=== PATIENT | female | born 1950 | race Caucasian/White ===

== ENCOUNTER → 2018-01-06 | Outpatient (CLI) | payer MEDICARE ==
--- NOTE | 2018-01-08 11:07 | MM ---
Reason for exam: screening (asymptomatic). Last mammogram was performed 1 year and 9 months ago. History: Patient is postmenopausal. Benign excisional biopsy of the left breast, August 10, 1998. Physical Findings: A clinical breast exam by your physician is recommended on an annual basis and results should be correlated with mammographic findings. MG 3D Screening Mammo W/Cad Bilateral CC and MLO view(s) were taken. Prior study comparison: April 12, 2016, bilateral MG screening mammo w CAD. November 29, 2014, bilateral MG screening mammo w CAD. The breast tissue is heterogeneously dense. This may lower the sensitivity of mammography. There is a new 3mm group of calcifications upper outer quadrant right breast at posterior depth. Other bilateral benign appearing calcifications are seen. No suspicious abnormality in the left breast. ASSESSMENT: Incomplete: need additional imaging evaluation, BI-RAD 0 RECOMMENDATION: Special view mammogram of the right breast. [facility] will attempt to contact patient to return for supplemental views.
== END | disposition home or self-care (01) ==
LOC: RADMAMWWP 11:25
PROVIDERS: ATTEND Family Medicine
DX: Z12.31 Encounter for screening mammogram for malignant neoplasm of breast (principal)
CPT/HCPCS: 77063; 77067

== ENCOUNTER → 2018-01-21 | Outpatient (CLI) | payer MEDICARE ==
--- NOTE | 2018-01-21 13:19 | MM ---
Reason for exam: additional evaluation requested from abnormal screening. Last mammogram was performed less than 1 month ago. History: Patient is postmenopausal. Benign excisional biopsy of the left breast, August 10, 1998. Physical Findings: Nurse did not find any significant physical abnormalities on exam. MG 3D Work Up W/Cad RT CC with magnification, LM with magnification, and LM view(s) were taken of the right breast. Prior study comparison: January 06, 2018, bilateral MG 3d screening mammo w/cad. April 12, 2016, bilateral MG screening mammo w CAD. The breast tissue is heterogeneously dense. This may lower the sensitivity of mammography. Finding: There are suspicious heterogeneous, grouped calcifications in the upper outer quadrant, middle position of the right breast, 11 cm from the nipple. New finding since April 12, 2016. These results were verbally communicated with the patient and result sheet given to the patient on 01/21/18. ASSESSMENT: Suspicious, BI-RAD 4 RECOMMENDATION: Stereotactic core biopsy of the right breast. Called Dr. Walters with mammographic findings and has scheduled an appointment on 02/13/18 at 10:20 for the patient for at with Dr. Lopez. Stereo core biopsy on Saturday02/14/18 at 8:00am. PRELIMINARY REPORT CALLED AND FAXED TO DR. LOPEZ ON 01/21/18.
== END | disposition home or self-care (01) ==
LOC: RADMAMWWP 09:41
PROVIDERS: ATTEND Family Medicine
DX: R92.8 Other abnormal and inconclusive findings on diagnostic imaging of breast (principal)
CPT/HCPCS: 77065; G0279; 77061

== ENCOUNTER → 2018-01-27 | Outpatient (CLI) | payer MEDICARE ==
--- NOTE | 2018-01-27 10:17 | US ---
EXAMINATION TYPE: US carotid duplex BILAT DATE OF EXAM: 01/27/2018 COMPARISON: NONE CLINICAL HISTORY: E78.5 Hyperlipidemia. High cholesterol, no hx of stroke or TIA EXAM MEASUREMENTS: RIGHT: Peak Systolic Velocity (PSV) cm/sec ----- Right CCA: 93.0 ----- Right ICA: 70.4 ----- Right ECA: 108.3 ICA/CCA ratio: 0.8 RIGHT: End Diastole cm/sec ----- Right CCA: 24.8 ----- Right ICA: 31.1 ----- Right ECA: 15.0 LEFT: Peak Systolic Velocity (PSV) cm/sec ----- Left CCA: 95.4 ----- Left ICA: 88.8 ----- Left ECA: 104.4 ICA/CCA ratio: 0.9 LEFT: End Diastole cm/sec ----- Left CCA: 24.9 ----- Left ICA: 33.7 ----- Left ECA: 10.7 VERTEBRALS (direction of flow): Right Vertebral: Antegrade Left Vertebral: Antegrade Rhythm: Normal No elevated velocities, significant stenosis or wall thickening. Plaque seen in left bulb. IMPRESSION: 1. Atherosclerotic plaque involving the left carotid bifurcation but no diagnostic evidence of signif icant hemodynamic stenosis. Criteria for Assigning % of Stenosis / Diameter reduction (Estimation based on the indirect measurements of the internal carotid artery velocities (ICA PSV). 1. Normal (no stenosis)=ICA PSV < 125 cm/s: ratio < 2.0: ICA EDV<40 cm/s. 2. Less than 50% stenosis=ICA PSV < 125 cm/s: ratio < 2.0: ICA EDV<40 cm/s. 3. 50 to 69% stenosis=ICA PSV of 125 to 230 cm/s: ration 2.0 ? 4.0: ICA EDV 40-100 cm/s. 4. Greater than 70% stenosis to near occlusion= ICA PSV > 230 cm/s: ratio > 4.0: ICA EDV > 100 cm/s. 5. Near occlusion= ICA PSV velocities may be low or undetectable: variable ratio and ICA EDV. 6. Total occlusion=unable to detect flow.
--- NOTE | 2018-01-27 12:06 | ECHOS ---
STRESS ECHOCARDIOGRAM DATE OF SERVICE: 01/27/2018 INDICATIONS: Chest discomfort. MEDICATIONS: BASELINE HEART RATE: 71 BASELINE BLOOD PRESSURE: 124/61 MAXIMUM HEART RATE: 154 MAXIMUM BLOOD PRESSURE: 210/104 85% MPHR: 132 100% MPHR: 155 METS: 7 MAXIMUM STAGE REACHED: II TOTAL EXERCISE TIME: 5 minutes CLINICAL INFORMATION: STRESS DATA: Pretesting physical examination showed a heart rate of 71, pressure is 124/61 mmHg. Baseline EKG showed sinus mechanism. The patient exercised on the treadmill according to Jd protocol for a total of 5 minutes and achieved 7.0 METs. Max heart rate was 154, which is about 99% of maximum predicted heart rate. Maximum blood pressure was 210/104 mmHg. Clinically the patient did not have any symptoms of chest pain or discomfort but she developed shortness of breath with exertion. The EKG showed about 1.5 mm horizontal and downsloping ST-segment changes at peak of the heart rate as well as on recovery. ECHOCARDIOGRAM IMAGES: Echocardiogram images from parasternal long axis view, parasternal short axis view, apical 4 chamber view and apical 2 chamber view were obtained as the baseline images, at peak heart rate, as well as on recovery. The echocardiogram images showed an area of concern in the basal inferior wall of the left ventricle, seems to be hypokinetic at the peak of the heart rate. CONCLUSION: 1. Average exercise tolerance. 2. Shortness of breath in response to exercise. 3. Ischemic EKG changes in response to exercise with evidence of 1.[address]-segment changes at peak heart rate. 4. Abnormal wall motion abnormalities in response to exercise with evidence of basal inferior hypokinesia was seen at the apical 2 chamber view. MMODL / IJN: [id number] /
== END | disposition home or self-care (01) ==
LOC: RADUSMAIN 09:00
PROVIDERS: ATTEND Internal Medicine Cardiovascular Disease
DX: I65.22 Occlusion and stenosis of left carotid artery (principal)
CPT/HCPCS: 93351; 93880

== ENCOUNTER → 2018-02-13 | Outpatient (CLI) | payer MEDICARE ==
[2018-02-13 10:41] VITALS: BP 158/73; PULSE 86; BMI 29.0
--- NOTE | 2018-02-13 11:06 | P.GSHP ---
History of Present Illness H&P Date: 02/13/18 The patient is a 67-year-old white female who on routine mammogram performed on 01-06-18 was recommended to have additional views of the right breast. Additional views of the right breast was performed and a 01-21-18 which revealed a suspicious heterogeneous grouped calcifications in the upper outer quadrant middle position of the right breast 11 cm from the nipple. This is a new finding since March 2016. The patient states that she did fall recently twice on her right shoulder but does not think that she really injured her breast. She has no nipple discharge or skin changes noted in her breasts. She does not note any nodularity in her breast. Family History: 1. brother: skin cancer 2. mother: fibrocystic breast no cancer Hormonal history: menarche: 13 : 1, 1 child, age 29, breast fed: yes BCP: none hormones: none menopause: 52 Past surgical history: 1. breast biopsy 1998 2. bladder suspension 3. cyst removed from sciatic nerve 4. cataracts Past medical history: Negative Social history: Poking: Negative Alcohol: 2-3 drinks per week Drugs: - Constitutional Constitutional: Denies chills, Denies fever - EENT Eyes: bilateral as per HPI Ears: bilateral: decreased hearing Ears, nose, mouth and throat: Denies headache, Denies sore throat - Breasts Breasts: bilateral: as per HPI - Cardiovascular Cardiovascular: Reports high blood pressure, Denies chest pain, Denies shortness of breath - Respiratory Respiratory: Denies cough, Denies 7 - Gastrointestinal Gastrointestinal: Denies abdominal pain, Denies diarrhea, Denies nausea, Denies vomiting - Genitourinary (Female) Genitourinary: Reports as per HPI, Denies dysuria, Denies hematuria - Menstruation Menstruation: Reports postmenopausal - Musculoskeletal Comment: mild arthritis Musculoskeletal: Denies myalgias - Integumentary Integumentary: Denies pruritus, Denies rash - Neurological Neurological: Denies numbness, Denies weakness - Psychiatric Psychiatric: Denies anxiety, Denies depression - Endocrine Endocrine: Denies fatigue, Denies weight change - Hematologic/Lymphatic Comment: Baby aspirin - Allergic/Immunologic Comment: none Past Medical History Smoking Status: Never smoker Medications and Allergies Home Medications Medication Instructions Recorded Confirmed Type Aspirin 81 mg PO DAILY 01/29/18 01/29/18 History Calcium Carbonate [Calcium] 600 mg PO DAILY 01/29/18 01/29/18 History Cholecalciferol (Vitamin D3) 2,000 PO DAILY 01/29/18 History [Vitamin D3] Krill/Grant-3/Dha/Epa/Lipids 350 mg PO DAILY 01/29/18 01/29/18 History [Krill Oil 350 mg Softgel] Losartan [Cozaar] 50 mg PO DAILY 01/29/18 01/29/18 History Magnesium 400 mg PO DAILY 01/29/18 01/29/18 History Pravastatin Sodium [Pravachol] 40 mg PO DAILY 01/29/18 History Allergies Allergy/AdvReac Type Severity Reaction Status Date / Time No Known Allergies Allergy Verified 01/29/18 11:57 Surgical - Exam Vital Signs Pulse BP Pulse Ox 86 158/73 96 02/13/18 10:36 02/13/18 10:36 02/13/18 10:36 - General well developed, well nourished, no distress - Eyes PERRL, normal ocular movement - ENT no hearing loss, no congestion - Neck no masses, trachea midline - Respiratory normal respiratory effort, clear to auscultation - Cardiovascular Rhythm: regular Heart Sounds: normal: S1, S2 - Abdomen Abdomen: soft, non tender, no guarding, no rigid, no rebound - Neurologic no disoriented, no combative - Psychiatric oriented to time, oriented to person, oriented to place, speech is normal, memory intact Breast examination: Right breast: Positional exam no dominant masses or nodules of concern Right axilla: No adenopathy of concern Left breast: Positional exam no dominant masses or nodules of concern Left axilla: No adenopathy of concern Results Mammogram reports and radiographs reviewed with radiologist Assessment and Plan Assessment: Impression/plan: 1. Mammographic abnormality right breast Plan: 1. Stereotactic core biopsy mammographic abnormality right breast Risk and benefits discussed with the patient patient understands and wishes to proceed. These include but are not limited to bleeding, infection, inability to target the area, and clip migration. Alternative of following conservatively not felt to be a good choice secondary to a change on the mammogram and the heterogeneous nature of the calcifications. The procedures scheduled in the near future. Cc: Dr. Walters
== END | disposition home or self-care (01) ==
LOC: WWCWWP 10:19
PROVIDERS: ATTEND Surgery
DX: Z53.9 Procedure and treatment not carried out, unspecified reason (principal)

== ENCOUNTER → 2018-02-14 | Day surgery (SDC) | payer MEDICARE ==
[2018-02-14 07:29] VITALS: BP 146/83; PULSE 87; RESP 18; TEMP 98.7; BMI 29.0
--- NOTE | 2018-02-14 15:04 | MM ---
EXAMINATION TYPE: MG discontinued stereo core RT DATE OF EXAM: 02/14/2018 COMPARISON: 04/12/2016, 01/06/2018, and 01/21/2018 CLINICAL HISTORY: 67-year-old female referred for stereotactic core needle biopsy of right breast catherine rocalcifications TECHNIQUE: Stereotactic guided core biopsy of the right breast. FINDINGS: The procedure of stereotactic guided core biopsy was explained to the patient. Benefits, a lternatives, and risks were discussed. An informed consent was then obtained. [facility]. Shortness pathway was a lateral approach. However, the calcifications could not be identified on lateral compression and a CC approach was util ized. The patient's breasts had to be released from compression, repositioned, and recompressed a couple ti mes in order to successfully identify the calcifications. I performed the localization, then surgeon, Dr. Sagar Aaron attempted the procedure. However, set up became prolonged during attempts at identifying the calcifications and the calcifications were off ta rget after needle placement deployment due to movement. The patient elected to discontinue the procedure at this time and resume at a later date. The patient tolerated the procedure well without any immediate complication. The patient was kept in the radiology department for short stay after the procedure and then discharged home in stable condi tion. The patient will be going on vacation and returning in March at which time, she will be scheduled t o return for biopsy. IMPRESSION: 1. Technical difficulties during attempt at stereotactic core needle biopsy of right breast calcifica tions. They could not be adequately identified on lateral approach. CC from above approach was utiliz ed but the calcifications were off target after deployment of the needle due to movement. 2. Patient elected to discontinue the procedure at this time. Biopsy will be reattempted when she ret urns from vacation in March.
== END ==
LOC: RADMAMWWP 07:05
PROVIDERS: ATTEND Surgery
DX: N63.10 Unspecified lump in the right breast, unspecified quadrant (principal); N92.1 Excessive and frequent menstruation with irregular cycle; Z53.8 Procedure and treatment not carried out for other reasons
CPT/HCPCS: 19081; J2001

== ENCOUNTER → 2018-04-08 | Outpatient (CLI) | payer MEDICARE ==
--- NOTE | 2018-04-08 15:22 | XR ---
Left foot HISTORY: Left foot pain, trauma No comparisons available 3 views of the left foot Bone mineralization, joint spaces and alignment are maintained. Degenerative change present at the fi rst metatarsophalangeal joint with soft tissue swelling. Talar neck spur, anterior distal tibial spur noted compatible with osteoarthritis. Soft tissue calcifications in the left leg likely are vascular . Enthesophyte present at the insertion of the Achilles tendon. IMPRESSION: No fracture or dislocation. Osteoarthritis.
== END | disposition home or self-care (01) ==
LOC: RADXRMAIN 13:01
PROVIDERS: ATTEND Family Medicine
DX: M19.072 Primary osteoarthritis, left ankle and foot (principal)

== ENCOUNTER → 2018-05-15 | Day surgery (SDC) | payer MEDICARE ==
[2018-05-15 07:16] VITALS: RESP 16; TEMP 98.1; BMI 29.4
[2018-05-15 08:45] VITALS: BP 123/79; PULSE 66
--- NOTE | 2018-05-15 09:34 | P.PCN ---
Date of Procedure: 05/15/18 Preoperative Diagnosis: Microcalcifications of concern right breast Postoperative Diagnosis: Microcalcifications in the upper-outer quadrant middle position of the right breast 11 cm from the nipple the finding since March, Procedure(s) Performed: Right breast are tactic core biopsy Anesthesia: local Surgeon: Kaylie Lopez Estimated Blood Loss (ml): 2 Pathology: other (Breast tissue) Condition: stable Disposition: same day Indications for Procedure: Suspicious microcalcifications right breast new from 2015 Operative Findings: Microcalcifications noted in specimen radiograph Description of Procedure: The patient is a 67-year-old white female who had a mammogram performed on . She was noted to have an area of suspicious microcalcifications in the right breast in the upper outer quadrant, middle position of the right breast, 11 cm from the nipple. The patient had an attempted stereotactic core biopsy on [id number]. Secondary to technical difficulties the procedure was rescheduled. The patient understands the risks and benefits of the procedure and wishes to proceed. The patient was taken to the stereotactic core room and positioned on the stereotactic Lorad table. The area of concern was identified and a punch press setter view on a CC from above approach. A stereo pair was obtained. The lesion was targeted. The skin was prepped using Betadine. Approximately 20 mL of one percent lidocaine was used to anesthetize the area of concern. The needle was driven to the correct coordinates. Pre-fire and post-fire films were obtained. There was concern that the Y axis was too high and this was corrected by factor of approximately +3. Repeat post-fire films were obtained and the needle appeared to be in the correct location. Multiple core biopsies were obtained from the 3 to 9 o'clock position. Approximately 12 cores were obtained. The this was done using a 9-gauge vacuum assisted rotating core needle. Radiograph of the specimen revealed the area of concern had been removed. The area was marked using a secure marked top. Marker. Radiograph revealed the marker was in the correct location. The specimen was sent to pathology. The patient will follow-up Dr. Keith in 1 week. There are no immediate postoperative complications.
--- NOTE | 2018-05-15 09:38 | MM ---
EXAMINATION TYPE: MG stereo VAD BX RT DATE OF EXAM: 05/15/2018 COMPARISON: Mammogram January 21, 2018 and older studies. CLINICAL HISTORY: Prior abnormal mammogram TECHNIQUE: Stereotactic guided core biopsy of right breast with clip placement and follow-up two-view mammogram. FINDINGS: The procedure of stereotactic guided core biopsy was explained to the patient. Benefits, alternatives, and risks were discussed. An informed consent was then obtained. Cranial pathway was chosen as there were issues with prior attempted lateral approach. I performed the localization, then surgeon, Dr. Lopez performed the remainder of the procedure. A vacuum assisted biopsy gun was used to obtain multiple core samples. The patient tolerated the procedure well without any immediate complication. The patient was kept in the radiology department for short stay after the procedure and then discharged home in stable condition. Targeted calcifications are identified in specimen mammogram. Post biopsy mammogram shows the clip to appear in satisfactory position relative to the targeted area of concern on the preprocedure images. IMPRESSION: SUCCESSFUL, UNCOMPLICATED STEREOTACTIC GUIDED CORE BIOPSY OF AREA OF CONCERN IN THE RIGHT BREAST, FULL PATHOLOGY RESULTS TO FOLLOW. Pathology Results: Benign RIGHT BREAST, STEREOTACTIC CORE BIOPSY: Fibrocystic changes including fibroadenomatoid hyperplasia with calcifications, fibrosis and sclerosing adenosis. Recommendation Follow up mammogram of the right breast in 6 months. ASA
== END ==
LOC: RADMAMWWP 06:56
PROVIDERS: ATTEND Surgery
DX: N62 Hypertrophy of breast (principal); R92.1 Mammographic calcification found on diagnostic imaging of breast; N60.31 Fibrosclerosis of right breast; N60.21 Fibroadenosis of right breast
CPT/HCPCS: 88305; 19081; A4648; J2001

== ENCOUNTER → 2018-05-22 | Outpatient (CLI) | payer MEDICARE ==
[2018-05-22 10:59] VITALS: BP 160/82; PULSE 98; RESP 18; TEMP 98.6; BMI 28.7
--- NOTE | 2018-05-22 11:50 | P.PN ---
Subjective Progress Note Date: 05/22/18 Principal diagnosis: right breast sterotactic core biopsy Yessenia is a 67-year-old white female who is status post right breast stereotactic core biopsy on 05-15-18. Her pathology was benign. She has no complaints related to the procedure. Objective - Vital Signs Vital signs: Vital Signs Temp 98.6 F 05/22/18 10:41 Pulse 98 05/22/18 10:41 Resp 18 05/22/18 10:41 BP 160/82 05/22/18 10:41 Pulse Ox Intake & Output 05/21/18 05/22/18 05/22/18 18:59 06:59 18:59 Weight 73.482 kg - Constitutional General appearance: Present: average body habitus - EENT Eyes: Present: EOMI ENT: Present: hearing grossly normal - Neck Neck: Present: normal ROM - Respiratory Respiratory: bilateral: CTA - Cardiovascular Rhythm: regular Heart sounds: normal: S1, S2 - Integumentary Integumentary Comment(s): Right breast examination: Biopsy site clean and dry no evidence of infection No evidence of hematoma Integumentary: Present: normal turgor - Musculoskeletal Musculoskeletal: Present: gait normal - Psychiatric Psychiatric: Present: A&O x's 3, appropriate affect, intact judgment & insight Assessment and Plan Assessment: Impression: 1. Benign right breast are detected core biopsy 2. Fibrocystic breast changes Plan: 1. Bilateral mammogram of the breast in 6 months with physician exam at that time CC: Dr. Walters
== END ==
LOC: WWCWWP 10:25
PROVIDERS: ATTEND Surgery
DX: Z53.9 Procedure and treatment not carried out, unspecified reason (principal)

== ENCOUNTER → 2018-05-23 | Outpatient (CLI) | payer MEDICARE ==
--- NOTE | 2018-05-23 10:20 | US ---
EXAMINATION TYPE: US venous doppler duplex LE BI DATE OF EXAM: 05/23/2018 10:11 AM COMPARISON: NONE CLINICAL HISTORY: Elevated D Dimer R79.1, R60.0 edema. SIDE PERFORMED: Bilateral TECHNIQUE: The lower extremity deep venous system is examined utilizing real time linear array sonog drea with graded compression, doppler sonography and color-flow sonography. VESSELS IMAGED: External Iliac Vein (EIV) Common Femoral Vein Deep Femoral Vein Greater Saphenous Vein * Femoral Vein Popliteal Vein Small Saphenous Vein * Proximal Calf Veins (* superficial vessels) Grayscale, color doppler, spectral doppler imaging performed of the deep veins of the lower extremiti es. There is normal flow, compressibility, vascular waveforms. Right Leg: Negative for DVT Left Leg: Negative for DVT IMPRESSION: No sonographic evidence of deep venous thrombosis within either lower extremity.
== END | disposition home or self-care (01) ==
LOC: RADUSWWP 09:39
PROVIDERS: ATTEND Family Medicine
DX: R60.0 Localized edema (principal); R79.1 Abnormal coagulation profile
CPT/HCPCS: 93970

== ENCOUNTER → 2018-07-11 | Outpatient (CLI) | payer MEDICARE ==
[2018-07-11 18:47] LABS: LDL Cholesterol,Calculated 74.6 mg/dL (0.0-131.0); VLDL Calculation 30.4 mg/dL (5.00-40.00)
== END ==
LOC: LABWHC1 12:39
PROVIDERS: ATTEND Internal Medicine Cardiovascular Disease
DX: E78.00 Pure hypercholesterolemia, unspecified (principal)
CPT/HCPCS: 36415; 80061; 84450; 84460

== ENCOUNTER → 2018-08-26 | Outpatient (CLI) | payer MEDICARE ==
--- NOTE | 2018-08-26 14:43 | XR ---
Bilateral hips HISTORY: Hip pain 2 views of each hip submitted on a total of 4 images. Comparison to prior exam 03/29/2016 Bone mineralization, joint spaces and alignment are maintained. No fracture or dislocation. IMPRESSION: Stable exam, normal hips.
--- NOTE | 2018-08-26 14:45 | XR ---
Bilateral knees HISTORY: Bilateral knee pain 3 views of each knee submitted on a total of 6 images Bone mineralization, joint spaces and alignment are maintained. Minimal marginal spurring present in the medial compartment, patellofemoral joint on the right. Suprapatellar increased density suggests s mall joint effusions. IMPRESSION: Osteoarthritis
--- NOTE | 2018-08-26 14:49 | XR ---
Lumbosacral spine HISTORY: Back pain 5 views of the lumbosacral spine There is a mild levoscoliosis centered at L1-2. Laminectomies are present at L4. Anterolisthesis grad e 1 at L4-5. There is multilevel spondylosis, no evident spondylolysis. Lumbar vertebral bodies show preserved height. Bone mineralization is reduced. Sclerosis present in the posterior elements of the lumbar spine compatible with facet arthropathy. Vascular calcifications noted incidentally. Loss of d isc height present at the intervertebral levels. Partial staghorn calculus noted incidentally in the left kidney, right renal calcifications also noted IMPRESSION: Degenerative disc disease, facet arthropathy, osteopenia, spondylolisthesis and spinal cu rvature. Bilateral nephrolithiasis.
== END | disposition home or self-care (01) ==
LOC: RADXRMAIN 13:10
PROVIDERS: ATTEND Family Medicine
DX: M51.37 Other intervertebral disc degeneration, lumbosacral region (principal); M43.16 Spondylolisthesis, lumbar region; M46.97 Unspecified inflammatory spondylopathy, lumbosacral region; M85.88 Other specified disorders of bone density and structure, other site; M17.0 Bilateral primary osteoarthritis of knee; M25.551 Pain in right hip; M25.552 Pain in left hip
CPT/HCPCS: 72110; 73521

== ENCOUNTER → 2018-09-24 | Outpatient (CLI) | payer MEDICARE ==
--- NOTE | 2018-09-24 15:38 | BD ---
EXAMINATION TYPE: Axial Bone Density DATE OF EXAM: 09/24/2018 COMPARISON: NONE CLINICAL HISTORY: Postmenopausal female. Osteoporosis screening. Height: 64 Weight: 167.7 FRAX RISK QUESTIONS: Alcohol (3 or more units per day): no Family History (Parent hip fracture): no Glucocorticoids (More than 3mos): no (Ex: prednisone, prednisolone, methylprednisolone, dexamethasone, and hydrocortisone). History of Fracture in Adulthood: no Secondary Osteoporosis: 1. Type 1 Diabetes: no 2. Hyperthyroidism: no 3. Menopause before 45: no 4. Malnutrition: no 5. Chronic liver disease: no Rheumatoid Arthritis: no Current Tobacco Use: no RISK FACTORS HISTORY OF: Surgery to Spine/Hip(right/left)/Wrist (right/left): When: Family History of Osteoporosis: yes Active: yes Diet low in dairy products/other sources of calcium: Postmenopausal woman: yes age 52 MEDICATIONS: losartan, rosuvastatin, aspirin Additional History: EXAM MEASUREMENTS: Bone mineral densitometry was performed using the [employer] System. Bone mineral density as measured about the Lumbar spine is: ----- L1-L4(G/cm2): 1.084 T Score Values are as follows: ----- L2: -0.3 ----- L3: -0.2 ----- L4: -1.9 ----- L1-L4: -0.8 Bone mineral density : baseline Bone mineral density about the R hip (g/cm2): 1.014 Bone mineral density about the L hip (g/cm2): 0.989 T Score values are as follows: -----R Neck: -0.2 -----L Neck: -0.3 -----R Total: 0.7 -----L Total: 0.0 Bone mineral density : baseline IMPRESSION: Normal (Values between +1 and -1 indicate normal bone mass). Consider repeating this study in 5 year s or sooner if there is some new clinical indication. NOTE: T-SCORE=SD OF THE YOUNG ADULT MEAN.
== END | disposition home or self-care (01) ==
LOC: RADBDWWP 08:31
PROVIDERS: ATTEND Family Medicine
DX: M81.0 Age-related osteoporosis without current pathological fracture (principal)
CPT/HCPCS: 77080

== ENCOUNTER → 2019-01-16 | Outpatient (CLI) | payer MEDICARE ==
--- NOTE | 2019-01-16 11:04 | MM ---
Reason for exam: additional evaluation requested from prior study. Last mammogram was performed 1 year ago. History: Patient is postmenopausal. Benign MG stereo VAD BX RT of the right breast, May 15, 2018. MG discontinued stereo core RT of the right breast, February 14, 2018. Benign excisional biopsy of the left breast, August 10, 1998. Physical Findings: Nurse did not find any significant physical abnormalities on exam. MG 3D Diag Mammo W/Cad KOMAL Bilateral CC and MLO view(s) were taken. Prior study comparison: January 21, 2018, right breast MG 3d work up w/cad RT. January 06, 2018, bilateral MG 3d screening mammo w/cad. The breast tissue is heterogeneously dense. This may lower the sensitivity of mammography. Benign appearing bilateral calcifications. No suspicious abnormality. Right biopsy marker. No significant new findings when compared with previous films. These results were verbally communicated with the patient and result sheet given to the patient on 01/16/19. ASSESSMENT: Benign, BI-RAD 2 RECOMMENDATION: Routine screening mammogram of both breasts in 1 year.
== END | disposition home or self-care (01) ==
LOC: RADMAMWWP 09:36
PROVIDERS: ATTEND Surgery
DX: R92.8 Other abnormal and inconclusive findings on diagnostic imaging of breast (principal)
CPT/HCPCS: 77066; G0279; 77062

== ENCOUNTER → 2019-02-12 | Outpatient (CLI) | payer MEDICARE ==
--- NOTE | 2019-02-12 13:48 | MR ---
EXAMINATION TYPE: MR lumbar spine wo/w con DATE OF EXAM: 02/12/2019 COMPARISON: X-rays of the lumbar spine dated 08/26/2018 HISTORY: Radiculopathy, lumbar region , pain in left hip area TECHNIQUE: Multiplanar, multisequence images of the lumbar spine were acquired utilizing [address] gadolinium contrast. FINDINGS: There is grade 1 anterolisthesis of L4 and L5 with disc uncovering. Remainder the vertebral bodies of the lumbar spine maintain normal vertebral body heights and alignment. Conus medullaris is unremarkable terminating at L1. Postsurgical changes seen of the lower lumbar spine with surgical ab sence of the L4 and L5 posterior elements. There is a synovial cyst protruding posteriorly from the r ight L4-L5 facet joint measuring 8 mm. No mass effect upon the nerve roots as this is posterior to th e joint space. There are probable bilateral renal sinus cysts although incompletely evaluated with MRI given the fie ld-of-view. Right extrarenal pelvises also suspected. Bone marrow is within normal limits. L1-L2: There is disc desiccation without focal herniation. Facet arthropathy and mild ligamentum flav um buckling is seen without spinal canal stenosis nor neural foraminal narrowing. L2-L3: There is a broad-based disc bulge and facet arthropathy with ligamentum flavum buckling creati ng mild spinal canal stenosis and moderate bilateral neural foraminal narrowing. L3-L4: There is a broad-based disc bulge and facet arthropathy resulting in moderate bilateral neural foraminal narrowing, left greater than right. Left neural foraminal narrowing is moderate to severe. Mild spinal canal stenosis. L4-L5: Disc uncovering is seen with a broad-based disc bulge and facet arthropathy resulting in sever e left and moderate to severe right neural foraminal narrowing. No spinal canal stenosis. L5-S1: There is a left paracentral disc herniation and broad-based disc bulge with facet arthropathy. Mild bilateral neural foraminal narrowing without spinal canal stenosis. There is a small amount of epidural fibrosis seen right laterally surrounding the thecal sac at the s uperior endplate of L5 abutting the right L5 nerve root. This is marked on postcontrast axial T1-weig hted image 9. IMPRESSION: 1. Small amount of epidural fibrosis is seen at the right lateral aspect of the thecal sac at L5-S1 a butting the L5 nerve root. 2. Left paracentral disc herniation at L5-S1 superimposed on a broad-based disc bulge contributing to mild bilateral neural foraminal narrowing. No spinal canal stenosis as there is postsurgical change with removal of the posterior elements. 3. Grade 1 anterolisthesis of L4 and L5 with disc uncovering resulting in moderate to severe right ne ural foraminal narrowing and severe left neural foraminal narrowing. 4. Mild spinal canal stenosis at L2-L3 and L3-L4. 5. Moderate degenerative disc disease of the lumbar spine results in variable degrees of neural dean inal narrowing as detailed above.
== END | disposition home or self-care (01) ==
LOC: RADMRIMAIN 12:19
PROVIDERS: ATTEND Family Medicine
DX: M48.061 Spinal stenosis, lumbar region without neurogenic claudication (principal); M48.07 Spinal stenosis, lumbosacral region; M43.16 Spondylolisthesis, lumbar region; M51.27 Other intervertebral disc displacement, lumbosacral region; M51.36 Other intervertebral disc degeneration, lumbar region
CPT/HCPCS: 72158; A9585

== ENCOUNTER → 2019-11-04 | Outpatient (CLI) | payer MEDICARE ==
[2019-11-04 12:56] LABS: Basophils % (A) 1 %; Eosinophils # (A) 0.3 k/uL (0-0.7); Eosinophils % (A) 5 %; HCT 39.6 % (34.0-46.0); HGB 12.8 gm/dL (11.4-16.0); Lymphocytes # (A) 1.4 k/uL (1.0-4.8); Lymphocytes % (A) 27 %; MCH 33.4 pg (25.0-35.0); MCHC 32.3 g/dL (31.0-37.0); MCV 103.2 fL (80.0-100.0); Macrocytosis Slight; Monocytes # (A) 0.3 k/uL (0-1.0); Monocytes % (A) 5 %; Neutrophils % (A) 60 %; Platelet Count 258 k/uL (150-450); RBC 3.83 m/uL (3.80-5.40); WBC 5.1 k/uL (3.8-10.6)
[2019-11-04 13:35] LABS: Appearance,Urine Cloudy (Clear); Bacteria,Urine Many /hpf; Bilirubin,Urine Negative (Negative); Blood,Urine Negative (Negative); Color,Urine Light Yellow; Glucose,Urine (UA) Negative (Negative); Ketones,Urine Negative (Negative); Leukocyte Esterase,Urine Large (Negative); Nitrite,Urine Positive (Negative); PH, Urine 7.5 (5.0-8.0); Protein,Urine Negative (Negative); RBC,Urine 3 /hpf (0-5); Specific Gravity,Urine 1.007 (1.001-1.035); Squamous Epithelial Cell,Urine 1 /hpf (0-4); Urobilinogen,Urine <2.0 mg/dL (<2.0); WBC,Urine 80 /hpf (0-5)
[2019-11-04 18:39] LABS: African American GFR (CKD) 88.4 (60.0-200.0); Albumin 4.3 g/dL (3.80-4.90); Albumin/Globulin Ratio 2.05 (1.60-3.17); BUN/Creat Ratio 18.75 Ratio (12.00-20.00); Calcium 9.7 mg/dL (8.7-10.3); Globulin 2.1 g/dL (1.6-3.3); Non-African American GFR(CKD) 76.3 (60.0-200.0); Potassium 4.3 mmol/L (3.5-5.5); Total Bilirubin 0.4 mg/dL (0.2-1.2); Total Protein 6.4 g/dL (6.2-8.2)
== END | disposition home or self-care (01) ==
LOC: LABWHC1 11:22
PROVIDERS: ATTEND Urology
DX: Z01.818 Encounter for other preprocedural examination (principal); N20.0 Calculus of kidney; R31.29 Other microscopic hematuria
CPT/HCPCS: 36415; 80053; 81001; 85025; 87086

== ENCOUNTER → 2019-11-06 | Outpatient (CLI) | payer MEDICARE | END | disposition home or self-care (01) | LOC: LABWHC1 11:59 | PROVIDERS: ATTEND Urology | DX: Z11.59 Encounter for screening for other viral diseases (principal) | CPT/HCPCS: 87635 ==

== ENCOUNTER 2019-11-11 06:09 | Observation (INO) | payer MEDICARE ==
[2019-11-06 16:13] VITALS: BMI 28.0
--- NOTE | 2019-11-10 19:57 | P.GSHP ---
History of Present Illness H&P Date: 11/10/19 [address] Tran who recently had a right ureteroscopy with remova of stones. She was referred to me for a left pcnl for a partial staghorn calculous. I recently examined, and reviewed the xray with the patient Due to the size[3cm] and location of the stone she comes for a left pcnl. The risks[infection, pain bleeding, injury to adjacent organs, injury and loss of the kidneys, failure to remove all the stone among others have been explained understood and accepted - Constitutional Constitutional: Denies chills, Denies fever - EENT Eyes: denies blurred vision, denies pain Ears, nose, mouth and throat: Denies headache, Denies sore throat - Cardiovascular Cardiovascular: Denies chest pain, Denies shortness of breath - Respiratory Respiratory: Denies cough, Denies 7 - Gastrointestinal Gastrointestinal: Denies abdominal pain, Denies diarrhea, Denies nausea, Denies vomiting - Genitourinary (Female) Genitourinary: Denies dysuria, Denies hematuria - Genitourinary (Male) Genitourinary: Denies dysuria, Denies hematuria - Musculoskeletal Musculoskeletal: Denies myalgias - Integumentary Integumentary: Denies pruritus, Denies rash - Neurological Neurological: Denies numbness, Denies weakness - Psychiatric Psychiatric: Denies anxiety, Denies depression - Endocrine Endocrine: Denies fatigue, Denies weight change Past Medical History Past Medical History: Eye Disorder, Hearing Disorder / Deafness, Hyperlipidemia, Hypertension, Osteoarthritis (OA) Additional Past Medical History / Comment(s): Hx Stress test showed 10% blockage 2019. Early macular degeneration. Kidney stones. OA hips, knees. History of Any Multi-Drug Resistant Organisms: None Reported Past Surgical History: Back Surgery, Bladder Surgery, Breast Surgery Additional Past Surgical History / Comment(s): Lumbar Laminectomy 2006, exc cyst sciatic nerve. [place] Breast bx, 2002 bladder suspension. Cataracts [place]. 10/21/19 Rt kidney stone, has stent. Past Anesthesia/Blood Transfusion Reactions: Postoperative Nausea & Vomiting (PONV) Smoking Status: Never smoker - Past Family History Father Family Medical History: Myocardial Infarction ([place]) Mother Family Medical History: Congestive Heart Failure (CHF) Medications and Allergies Home Medications Medication Instructions Recorded Confirmed Type Aspirin 81 mg PO HS 01/29/18 11/06/19 History Calcium Carbonate [Calcium] 600 mg PO DAILY 01/29/18 11/06/19 History Cholecalciferol (Vitamin D3) 2,000 cap PO DAILY 01/29/18 11/06/19 History [Vitamin D3] Krill/[place]-3/Dha/Epa/Lipids 350 mg PO DAILY 01/29/18 11/06/19 History [Krill Oil 350 mg Softgel] Losartan [Cozaar] 50 mg PO HS 01/29/18 11/06/19 History Rosuvastatin [Crestor] 40 mg PO HS 04/28/18 11/06/19 History Acetaminophen Tab [Tylenol] 325 - 650 mg PO DIRECTED PRN 11/06/19 11/06/19 History Vit C/E/Zn/Coppr/Lutein/Zeaxan 1 each PO DAILY 11/06/19 11/06/19 History [Preservision Areds 2 Softgel] Allergies Allergy/AdvReac Type Severity Reaction Status Date / Time No Known Allergies Allergy Verified 11/06/19 15:48 Surgical - Exam - General well developed, well nourished, no distress - Eyes PERRL - ENT no hearing loss - Neck no masses - Respiratory normal expansion, normal respiratory effort - Cardiovascular Rhythm: regular - Abdomen Abdomen: soft, non tender - Integumentary no rash - Neurologic normal coordination, normal sensation - Musculoskeletal normal gait, normal posture - Psychiatric oriented to time, oriented to person, oriented to place, speech is normal, radha ry intact Results - Imaging CT scan - abdomen: report reviewed, image reviewed CT scan - pelvis: report reviewed, image reviewed Assessment and Plan Assessment: Impression: Partial staghorn calculous left Plan: Left PCNL
[~2019-11-11 06:09] MED LIST: AMPICILLIN 1,000 MG in SODIUM CHLORIDE 0.9% 50 ML IVPB ONE; GENTAMICIN IN NACL ISO-OSM PMX 80 MG in SALINE 1 100ML.BAG IVPB ONE; LIDOCAINE 1% (10MG/ML) FOR IV START INTRADERMA PRN; ONDANSETRON 4 MG/2 ML VIAL IVP ONE; fentaNYL (PF) 50 MCG/ML 2 ML AMP IV PRN
--- NOTE | 2019-11-11 06:30 | XR ---
EXAMINATION TYPE: XR abdomen 1V DATE OF EXAM: 11/11/2019 6:21 AM CLINICAL HISTORY: Left-sided kidney stone. TECHNIQUE: Single supine KUB image of the abdomen is obtained. COMPARISON: Lumbar spine x-ray August 26, 2018 FINDINGS: Large lobulated left-sided staghorn type calculus occupying mid to lower pole central regio n likely pelvis of left kidney redemonstrated measuring approximately 3.9 cm long axis. Additional sm aller calculi towards the periphery mid to lower pole level are seen. Larger upper pole calculus on p rior x-rays not identified. Poor visualization of right renal calculi and current study with new righ t double-J ureter stent. Overall nonobstructive bowel gas pattern. Visualized osseous structures are intact. IMPRESSION: As above.
[2019-11-11] MEDS: LACTATED RINGERS 1,000 ML IV SCH ×2 (06:53→15:08)
[2019-11-11] MEDS ORDERED: LIDOCAINE 1% INJ 10MG/ML (20 ML MDV) ONE (07:20)
[2019-11-11] MEDS ORDERED: PHENYLEPHRINE-0.9% NACL SYG 1 MG/10 ML SYRINGE ONE (07:20)
[2019-11-11] MEDS ORDERED: ROCURONIUM BROMIDE 10 MG/ML 5 ML VIAL IV ONE (07:20)
[2019-11-11] MEDS ORDERED: fentaNYL (PF) 50 MCG/ML 2 ML AMP ONE (07:20)
[2019-11-11] MEDS ORDERED: SUCCINYLCHOLINE CHLORIDE 100 MG/5 ML SYR IV ONE (07:20)
[2019-11-11] MEDS ORDERED: NEOSTIGMINE 1 MG/ML 10 ML VIAL ONE (07:20)
[2019-11-11] MEDS ORDERED: GLYCOPYRROLATE 0.2 MG/ML 2 ML VIAL ONE (07:20)
[2019-11-11] MEDS ORDERED: MIDAZOLAM 2 MG/2 ML VIAL ONE (07:20)
[2019-11-11] MEDS ORDERED: PROPOFOL 10 MG/ML 20 ML VIAL IV ONE (07:20)
[2019-11-11] MEDS ORDERED: IOPAMIDOL-370 50ML BTL MISCELLANE ONE (07:25)
[2019-11-11] MEDS ORDERED: LACTATED RINGERS 1,000 ML IV ONE (09:40)
[2019-11-11] MEDS ORDERED: ACETAMINOPHEN TAB 325 MG TAB PO PRN (10:06)
[2019-11-11] MEDS ORDERED: MAG HYDROX/AL HYDROX/SIMETH 30 ML CUP PO PRN (10:06)
[2019-11-11] MEDS ORDERED: ONDANSETRON 4 MG/2 ML VIAL IVP PRN (10:06)
[2019-11-11] MEDS: HYDROmorphone 0.5 MG/0.5 ML SYRINGE IVP PRN ×4 (10:07→10:45)
[2019-11-11] MEDS ORDERED: NALOXONE 0.4 MG/ML 1 ML VIAL IV PRN (10:07)
--- NOTE | 2019-11-11 10:15 | P.OP ---
Date of Procedure: 11/11/19 Preoperative Diagnosis: Partial staghorn calculus left, large (greater than 3 cm) Postoperative Diagnosis: Same Procedure(s) Performed: Cystoscopy, removal double-J catheter right, placement of occluding balloon catheter left, percutaneous nephrostomy (Dr. hsieh) percutaneous nephrostolithotomy large (3 cm) ultrasound technique, placement of 20-Chilean reentry nephrostomy tube. Anesthesia: GETA Surgeon: Brannon Lundberg Estimated Blood Loss (ml): 200 Pathology: other (Stone) Condition: stable Disposition: PACU Indications for Procedure: The patient is 69. She has active stone disease. recently did right ureteroscopy with laser lithotripsy. She has a partial staghorn greater than 3 cm in the left kidney. She comes for percutaneous nephrostolithotomy by myself. Description of Procedure: The patient is brought to the operating suite. She is given a general endotracheal anesthesia. She's placed in a frog position with a sterile prep and drape. Cystoscopy Foroblique lens 22-Chilean sheath is performed. The double-J cath on the right is identified grasp and removed. I reintroduced the scope into the bladder. Through the scope I then pass a 5-Ch[place]an occluding balloon catheter up into the UPJ. It is secured to a 16-Chilean Watts. The patient's placed in a prone position. Sterile prep and drape was administered. Dr. Hsieh of radiology performed percutaneous access eventually to an upper pole calyx between the 12th and 11th rib. We attempted both middle and lower pole access the stone was too impacted. We eventually were able to dilate the tract to 30-Chilean. I introduced a 30-Chilean working sheath into the collecting system. Identify stone from the renal pelvis extending in an upper pole calyx. With ultrasound I tediously grind break suction and remove the stone. I passed into the renal pelvis. I then advanced the rigid scope down in the lower pole calyx where the stone continues into. All the stone that I can with ultrasound and direct vision. I then pass the flexible nephroscope into the collecting system. I passed this in the lower pole and basketed several small stones. At the end of the procedure I looked throughout the collecting system and see no obvious remaining stone although there is a fair amount of edema. I place a 20- [place]an reentry nephrostomy tube so that I can do a computed tomography scan postoperatively to make sure that all the stone is removed and a second look nephroscopy will not be indicated. The patient tolerated procedure well. She was awake and returned recovery in good condition. Blood loss is less than 200 mL.
--- NOTE | 2019-11-11 10:33 | FL ---
EXAMINATION TYPE: FL Perc Nephrostomy New Access DATE OF EXAM: 11/11/2019 COMPARISON: NONE HISTORY: Left renal stone Procedure had been discussed with the patient by Dr. Lundberg, risks, benefits, alternatives, were dis cussed and any questions were answered. Informed consent was obtained. The patient was in a semipro ne position prepped and draped on the OR table in the usual sterile fashion. Utilizing a 15 cm lengt h Chiba needle a single pass was made into a lower pole posterior calyx under fluoroscopic guidance. An 0.018 guidewire is passed through the needle and there was placement of a 6-Latvian catheter sheat h system. There was conversion to a 0.035 system was performed with passage of a guidewire into the ureter utilizing a directional catheter. A second safety wire was placed. Remaining portion of pro cedure performed by . Approximately 18.3 minutes of fluoroscopy was provided. IMPRESSION: 1. Successful intraoperative left nephrostomy prior to nephrolithotomy.
[2019-11-11 11:35] VITALS: RESP 16
[2019-11-11] MEDS ORDERED: HYDROmorphone PCA 10 MG/50 ML BAG IV PRN (12:00)
[2019-11-11] MEDS: DEXTROSE 5%-0.45% NACL 1,000 ML IV SCH ×2 (13:54→22:51)
--- NOTE | 2019-11-11 16:16 | CT ---
EXAMINATION TYPE: CT abdomen wo con DATE OF EXAM: 11/11/2019 COMPARISON: None HISTORY: kidney stone left post pcnl CT DLP: 485 mGycm Examination of the solid and hollow viscera is limited given the lack of contrast. Unenhanced CT of t he abdomen was performed. The lack of contrast limits evaluation. FINDINGS: LUNG BASES: Left basilar atelectasis and small effusion. LIVER/GB: The gallbladder is unremarkable. No space-occupying hepatic lesion. PANCREAS: No pancreatic mass identified. No inflammatory process seen. SPLEEN: No evidence for splenomegaly. No intrasplenic lesions seen. ADRENALS: No adrenal nodules identified. No evidence for thickening. KIDNEYS: There is been interval percutaneous urostomy with left perinephric air identified and a smal l amount of fluid seen. Left ureteral stent is identified. At the proximal component of the stent jus t distal to the left UPJ there is an approximately 3.5 mm calculus noted. Multiple left renal calculi are noted measuring 6.5 mm lower pole left kidney there are multiple right-sided renal calculi noted with the largest calculus measuring 4 mm the lower pole left kidney. 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 IMPRESSION: 1. Interval left-sided percutaneous nephrostomy with a nephrostomy tube in place. Perinephric air and small amount of fluid noted postprocedural in nature. Left ureteral stent with 3.5 mm calculus adjac ent to the proximal component of the left-sided stent just distal to the UPJ. 2. Multiple Additional left renal calculi with the largest calculus lower pole left kidney measuring 6.5 mm. Multiple nonobstructing right-sided nephrolithiasis.
[2019-11-11] MEDS: CIPROFLOXACIN HCL 500 MG TAB PO SCH (22:49)
[2019-11-12] MEDS: LOSARTAN 50 MG TAB PO SCH ×2 (02:10→20:37)
--- NOTE | 2019-11-12 07:05 | P.PN ---
Subjective Progress Note Date: 11/12/19 The patient's and her first postoperative day from a left percutaneous nephrostolithotomy of a partial staghorn calculus. The anatomy was technically challenging. I remove the majority of the stone but new that due to the nature of the stone, the intra-renal anatomy that there could be some stone fragments left. I ordered a computed tomography scan postoperatively and indeed there are some stones left. I do think that they will need to be removed. I left a larger tube in case I needed to do a secondary nephroscopy with nephrostolithotomy. This was discussed with the patient this morning and I will make arrangements for this to be done next week. I'll remove her Watts and IV. We'll see how she does with her pain today. She'll be discharged home probably sometime within the next 24 hours. He will go home with a nephrostomy tube. She has [place] at home. Diet will be regular activities Limited. Postoperative instructions have been given. She'll side how she feels as to determine whether she'll be discharged home later today or in the morning. Objective - Vital Signs Vital signs: Vital Signs Temp 99 F 11/12/19 05:34 Pulse 94 11/12/19 05:34 Resp 16 11/12/19 05:34 BP 98/60 11/12/19 05:34 Pulse Ox 97 11/12/19 05:34 Intake & Output 11/11/19 11/12/19 11/12/19 18:59 06:59 18:59 Intake Total 1950 1000 Output Total 1350 1605 Balance 600 -605 Weight 72 kg Intake: IV 1850 1000 Dextrose 5%-0.45% NaCl 1, 1000 000 ml @ 100 mls/hr IV . Q10H NIC Rx#:[id number] Intake, IV Titration 100 Amount Dextrose 5%-0.45% NaCl 1, 100 000 ml @ 100 mls/hr IV . Q10H NIC Rx#:[id number] Output: Drainage 605 Left Posterior Back 605 Urine 1150 1000 Estimated Blood Loss 200 Other: Voiding Method Indwelling Catheter
[2019-11-12] MEDS: HYDROcodone/APAP 5-325MG 1 EACH TAB PO PRN ×3 (08:49→20:37)
[2019-11-12] MEDS: CIPROFLOXACIN HCL 500 MG TAB PO SCH ×2 (08:51→20:36)
[2019-11-12] MEDS: DEXTROSE 5%-0.45% NACL 1,000 ML IV SCH (08:57)
[2019-11-12] MEDS: LACTATED RINGERS 1,000 ML IV SCH (10:54)
[2019-11-13 04:47] VITALS: BP 92/57; PULSE 97; TEMP 99.1
[2019-11-13] MEDS: HYDROcodone/APAP 5-325MG 1 EACH TAB PO PRN ×2 (05:52→10:18)
--- NOTE | 2019-11-13 07:20 | P.DS ---
Providers Date of admission: 11/12/19 11:39 Attending physician: Brannon Lundberg Primary care physician: [facility] Course: The patient was admitted 11/11/2019 for a left percutaneous nephrostolithotomy. This is difficult due to delicate intrarenal anatomy and impacted partial staghorn calculus. The bulk of the stone was removed but there still remained fragments based on the follow-up computed tomography scan. She is feeling much better today. Her vital signs are stable. She is afebrile. Her urine is clearing. She's been scheduled for a secondary nephroscopy next week. She'll go home with a nephrostomy tube. She has pain medicine at home. She'll have [place] testing Saturday. Postoperative instructions of been given. Her condition is good. The patient understands and consents to this discharge. Patient Condition at Discharge: Good Plan - Discharge Summary Discharge Rx Participant: No New Discharge Prescriptions: No Action Losartan [Cozaar] 50 mg PO HS Aspirin 81 mg PO HS Calcium Carbonate [Calcium] 600 mg PO DAILY Krill/[place]-3/Dha/Epa/Lipids [Krill Oil 350 mg Softgel] 350 mg PO DAILY Cholecalciferol (Vitamin D3) [Vitamin D3] 2,000 cap PO DAILY Rosuvastatin [Crestor] 40 mg PO HS Acetaminophen Tab [Tylenol] 325 - 650 mg PO DIRECTED PRN PRN Reason: Pain Vit C/E/Zn/Coppr/Lutein/Zeaxan [Preservision Areds 2 Softgel] 1 each PO DAILY Ciprofloxacin HCl [Cipro] 500 mg PO BID Discharge Medication List Aspirin 81 mg PO HS 01/29/18 [History] Calcium Carbonate [Calcium] 600 mg PO DAILY 01/29/18 [History] Cholecalciferol (Vitamin D3) [Vitamin D3] 2,000 cap PO DAILY 01/29/18 [History] Krill/[place]-3/Dha/Epa/Lipids [Krill Oil 350 mg Softgel] 350 mg PO DAILY 01/29/18 [History] Losartan [Cozaar] 50 mg PO HS 01/29/18 [History] Rosuvastatin [Crestor] 40 mg PO HS 04/28/18 [History] Acetaminophen Tab [Tylenol] 325 - 650 mg PO DIRECTED PRN 11/06/19 [History] Vit C/E/Zn/Coppr/Lutein/Zeaxan [Preservision Areds 2 Softgel] 1 each PO DAILY 11/06/19 [History] Ciprofloxacin HCl [Cipro] 500 mg PO BID 11/11/19 [History] Follow up Appointment(s)/Referral(s): Brannon Lundberg MD [STAFF PHYSICIAN] - 1 Week Patient Instructions/Handouts: Nephrostomy Tube Insertion (DC), Nephrostomy Tube Care (ED) Activity/Diet/Wound Care/Special Instructions: home with nephrostomy tube
[2019-11-13] MEDS: CIPROFLOXACIN HCL 500 MG TAB PO SCH (10:21)
== END 2019-11-13 11:44 | disposition home or self-care (01) ==
LOC: OR 06:09 → 5NMEDONC 09:51 → OR 11-12 11:39
PROVIDERS: ADMIT Urology; ATTEND Urology
DX: N20.0 Calculus of kidney (principal); H35.30 Unspecified macular degeneration; H91.90 Unspecified hearing loss, unspecified ear; E78.5 Hyperlipidemia, unspecified; I10 Essential (primary) hypertension; M16.0 Bilateral primary osteoarthritis of hip; I70.90 Unspecified atherosclerosis; M17.0 Bilateral primary osteoarthritis of knee; Z98.890 Other specified postprocedural states; Z86.69 Personal history of other diseases of the nervous system and sense organs; Z98.42 Cataract extraction status, left eye; Z98.41 Cataract extraction status, right eye; Z96.0 Presence of urogenital implants; Z91.89 Other specified personal risk factors, not elsewhere classified; Z79.82 Long term (current) use of aspirin; Z79.899 Other long term (current) drug therapy; Z79.2 Long term (current) use of antibiotics; Z82.49 Family history of ischemic heart disease and other diseases of the circulatory system
CPT/HCPCS: 86900; 86901; 86850; 82365; 50432; 74018; 74150; 50081; G0378 ×3; C1769 ×5; C2628; C1894; J1580; J2250; J2710; J2405; J2001; J3010; J0290; J2370; J0330; J2704; J1170 ×2; Q9967

== ENCOUNTER → 2019-11-16 | Outpatient (CLI) | payer MEDICARE | END | disposition home or self-care (01) | LOC: LABWHC1 14:40 | PROVIDERS: ATTEND Urology | DX: Z01.818 Encounter for other preprocedural examination (principal); Z11.59 Encounter for screening for other viral diseases; N20.0 Calculus of kidney ==

== ENCOUNTER 2019-11-18 09:30 | Day surgery (SDC) | payer MEDICARE ==
--- NOTE | 2019-11-17 12:21 | P.GSHP ---
History of Present Illness H&P Date: 11/17/19 69 yo female who underwent a left pcnl last week to a large partial staghorn calculous. The intrarenal anatomy was complicated and delicate Ther were retained stones She comes for a secondary pcnl to remove the remaining stones - Constitutional Constitutional: Denies chills, Denies fever - EENT Eyes: denies blurred vision, denies pain Ears, nose, mouth and throat: Denies headache, Denies sore throat - Cardiovascular Cardiovascular: Denies chest pain, Denies shortness of breath - Respiratory Respiratory: Denies cough, Denies 7 - Gastrointestinal Gastrointestinal: Denies abdominal pain, Denies diarrhea, Denies nausea, Denies vomiting - Genitourinary (Female) Genitourinary: Denies dysuria, Denies hematuria - Genitourinary (Male) Genitourinary: Denies dysuria, Denies hematuria - Musculoskeletal Musculoskeletal: Denies myalgias - Integumentary Integumentary: Denies pruritus, Denies rash - Neurological Neurological: Denies numbness, Denies weakness - Psychiatric Psychiatric: Denies anxiety, Denies depression - Endocrine Endocrine: Denies fatigue, Denies weight change Past Medical History Past Medical History: Hyperlipidemia, Hypertension History of Any Multi-Drug Resistant Organisms: None Reported Past Surgical History: Back Surgery, Bladder Surgery, Breast Surgery Additional Past Surgical History / Comment(s): breast bx, 2002 bladder suspension, 2007 cyst removed c nerve Past Anesthesia/Blood Transfusion Reactions: Postoperative Nausea & Vomiting (PONV) Past Alcohol Use History: None Reported - Past Family History Mother Family Medical History: Hyperlipidemia, Hypertension Additional Family Medical History / Comment(s): cysts removed from breasts around age 40 Father Family Medical History: Congestive Heart Failure (CHF), Hypertension Medications and Allergies Home Medications Medication Instructions Recorded Confirmed Type Aspirin 81 mg PO HS 01/29/18 11/06/19 History Calcium Carbonate [Calcium] 600 mg PO DAILY 01/29/18 11/11/19 History Cholecalciferol (Vitamin D3) 2,000 cap PO DAILY 01/29/18 11/06/19 History [Vitamin D3] Krill/[place]-3/Dha/Epa/Lipids 350 mg PO DAILY 01/29/18 11/06/19 History [Krill Oil 350 mg Softgel] Losartan [Cozaar] 50 mg PO HS 01/29/18 11/06/19 History Rosuvastatin [Crestor] 40 mg PO HS 04/28/18 11/06/19 History Acetaminophen Tab [Tylenol] 325 - 650 mg PO DIRECTED PRN 11/06/19 11/06/19 History Vit C/E/Zn/Coppr/Lutein/Zeaxan 1 each PO DAILY 11/06/19 11/06/19 History [Preservision Areds 2 Softgel] Ciprofloxacin HCl [Cipro] 500 mg PO BID 11/11/19 11/11/19 History HYDROcodone/APAP 5-325MG [[place] 1 each PO Q4HR PRN tab 11/13/19 Rx 5-325] Allergies Allergy/AdvReac Type Severity Reaction Status Date / Time No Known Allergies Allergy Verified 11/11/19 06:42 Surgical - Exam - General well developed, well nourished, no distress - Eyes PERRL - ENT no hearing loss - Neck trachea midline - Respiratory normal expansion, normal respiratory effort - Cardiovascular Rhythm: regular - Abdomen left nephrostomy tube Abdomen: soft, non tender - Integumentary no rash, no growths - Neurologic normal coordination, normal sensation - Musculoskeletal normal gait, normal posture - Psychiatric oriented to time, oriented to person, oriented to place, speech is normal, memory intact Results - Imaging CT scan - abdomen: report reviewed, image reviewed CT scan - pelvis: report reviewed, image reviewed Assessment and Plan Assessment: Impression: left renal stones Plan: secondary pcnl left
[2019-11-17 12:40] VITALS: BMI 28.0
[~2019-11-18 09:30] MED LIST changes: +DEXAMETHASONE SOD PHOSPHATE 10 MG/ML 1 ML VIAL IV ONE; +GENTAMICIN 90 MG in SODIUM CHLORIDE 0.9% 100 ML IVPB ONE; -GENTAMICIN IN NACL ISO-OSM PMX 80 MG in SALINE 1 100ML.BAG IVPB ONE; +HYDROmorphone 0.5 MG/0.5 ML SYRINGE IVP PRN; -LIDOCAINE 1% (10MG/ML) FOR IV START INTRADERMA PRN; -fentaNYL (PF) 50 MCG/ML 2 ML AMP IV PRN
[2019-11-18] MEDS: LIDOCAINE 1% (10MG/ML) FOR IV START INTRADERMA PRN ×2 (10:18→10:38)
[2019-11-18] MEDS: LACTATED RINGERS 1,000 ML IV SCH ×2 (10:39→11:10)
[2019-11-18 10:40] LABS: Basophils # (A) 0.1 k/uL (0-0.2); Basophils % (A) 1 %; Eosinophils # (A) 0.3 k/uL (0-0.7); Eosinophils % (A) 5 %; HCT 37.1 % (34.0-46.0); HGB 11.8 gm/dL (11.4-16.0); Lymphocytes # (A) 1.6 k/uL (1.0-4.8); Lymphocytes % (A) 22 %; MCH 32.3 pg (25.0-35.0); MCHC 31.8 g/dL (31.0-37.0); MCV 101.7 fL (80.0-100.0); Macrocytosis Slight; Mean Platelet Volume 7.1; Monocytes # (A) 0.4 k/uL (0-1.0); Monocytes % (A) 6 %; Neutrophils # (A) 4.6 k/uL (1.3-7.7); Neutrophils % (A) 64 %; Platelet Count 468 k/uL (150-450); RBC 3.65 m/uL (3.80-5.40); RDW 12.8 % (11.5-15.5); WBC 7.2 k/uL (3.8-10.6)
[2019-11-18 10:49] LABS: African American GFR (CKD) >90 (>60 ml/min/1.73 sqM); Anion Gap 11 mmol/L; Blood Urea Nitrogen 13 mg/dL (7-17); Calcium 9.6 mg/dL (8.4-10.2); Carbon Dioxide 24 mmol/L (22-30); Chloride 105 mmol/L (98-107); Glucose 106 mg/dL (74-99); Non-African American GFR(CKD) >90 (>60 ml/min/1.73 sqM); Sodium 140 mmol/L (137-145)
[2019-11-18 10:52] LABS: Potassium 5.2 mmol/L (3.5-5.1)
--- NOTE | 2019-11-18 11:07 | XR ---
EXAMINATION TYPE: XR KUB DATE OF EXAM: 11/18/2019 10:47 AM CLINICAL HISTORY: Renal calculi TECHNIQUE: Single supine KUB of the abdomen is obtained. COMPARISON: CT abdomen November 11, 2019. FINDINGS: Persistent percutaneous nephrostomy tube upper pole of the left kidney. Persistent left ure ter stent connected to nephrostomy tube. Persistent roughly 5-10 scattered left renal calculi mid to lower pole level. Known right-sided renal calculi on CT less well seen on x-ray. Lung bases are clear. Underlying scoliotic curvature with spinous process resection L4 level redemons trated. Overall nonobstructive bowel gas pattern. IMPRESSION: As above. Interval improvement in left periRenal gas collection without other significan t interval change from prior CT.
[2019-11-18] MEDS ORDERED: fentaNYL (PF) 50 MCG/ML 2 ML AMP ONE (11:09)
[2019-11-18] MEDS ORDERED: PROPOFOL 10 MG/ML 20 ML VIAL IV ONE (11:09)
[2019-11-18] MEDS ORDERED: PHENYLEPHRINE-0.9% NACL SYG 1 MG/10 ML SYRINGE ONE (11:09)
[2019-11-18] MEDS ORDERED: ePHEDrine SULFATE/0.9% NACL/PF 50 MG/5 ML SYRINGE IV ONE (11:09)
[2019-11-18] MEDS ORDERED: MIDAZOLAM 2 MG/2 ML VIAL ONE (11:09)
[2019-11-18] MEDS ORDERED: LIDOCAINE 1% INJ 10MG/ML (20 ML MDV) ONE (11:09)
[2019-11-18] MEDS ORDERED: SUCCINYLCHOLINE CHLORIDE 100 MG/5 ML SYR IV ONE (11:09)
[2019-11-18] MEDS ORDERED: IOPAMIDOL-370 50ML BTL INJ ONE (11:54)
[2019-11-18] MEDS ORDERED: LACTATED RINGERS 1,000 ML IV ONE (12:23)
--- NOTE | 2019-11-18 12:43 | P.OP ---
Date of Procedure: 11/18/19 Preoperative Diagnosis: Left renal stone post percutaneous nephrostolithotomy left Postoperative Diagnosis: Same Procedure(s) Performed: Secondary percutaneous nephrostolithotomy with laser, intraoperative nephrogram Anesthesia: KENROYA Surgeon: Brannon Lundberg Pathology: none sent Condition: stable Disposition: PACU Indications for Procedure: The patient is 69. She had a partial right staghorn calculus on the left kidney removed last week. There is small fragments in the left lower pole I could not see. She comes for a secondary nephrostolithotomy Description of Procedure: Patient brought operating suite. She is given a general endotracheal anesthesia. A Watts catheters introduced sterilely. She's placed in a prone position with care to airways and extremities. She is a sterile prep and drape. Through the old nephrostomy to an 035 wires passed down into the bladder. I then pass the flexible nephroscope throughout the collecting system. I do an intraoperative nephrostogram to make sure that approaching the calyces and have the stones. The stones are eventually identified. They are first lasered because of urine impacted in the small calyces a. I use a 200 laser probe and 4 W of energy a. I then basket the fragments up. I looked down the ureter the no remaining fragments. I do fluoroscopy to assure the no remaining fragments. I remove move the nephroscope. I removed the wire. I dressed the wound. The patient awake and returned recovery in good condition. She'll be discharged home upon recovery and found the office in one week.
[2019-11-18 12:54] VITALS: TEMP 97
--- NOTE | 2019-11-18 13:00 | FL ---
EXAMINATION TYPE: FL Perc Nephro Tube Change DATE OF EXAM: 11/18/2019 COMPARISON: NONE HISTORY: Fluoroscopic nephrostomy tube exchange TECHNIQUE: Fluoroscopy. FINDINGS: 3 2 seconds of fluoroscopy provided. IMPRESSION: As Above.
[2019-11-18 14:05] VITALS: BP 141/76; PULSE 84; RESP 16
== END 2019-11-18 14:48 | disposition home or self-care (01) ==
LOC: OR 09:30
PROVIDERS: ATTEND Urology
DX: N20.0 Calculus of kidney (principal); I10 Essential (primary) hypertension; E78.5 Hyperlipidemia, unspecified; Z79.82 Long term (current) use of aspirin; Z79.899 Other long term (current) drug therapy; Z98.890 Other specified postprocedural states; Z82.49 Family history of ischemic heart disease and other diseases of the circulatory system
CPT/HCPCS: 80048; 85025; 50435; 74018; 50080; C1769 ×3; C1894; J2250; J2405; J2001; J3010; J1580; J0290; J2370; J0330; J2704; Q9967

== ENCOUNTER → 2020-05-26 | Outpatient (CLI) | payer MEDICARE ==
--- NOTE | 2020-05-30 11:18 | MM ---
Reason for exam: screening (asymptomatic). Last mammogram was performed 1 year and 4 months ago. History: Patient is postmenopausal. Benign MG stereo VAD BX RT of the right breast, May 15, 2018. MG discontinued stereo core RT of the right breast, February 14, 2018. Benign excisional biopsy of the left breast, August 10, 1998. Physical Findings: A clinical breast exam by your physician is recommended on an annual basis and results should be correlated with mammographic findings. MG 3D Screening Mammo W/Cad Bilateral CC and MLO view(s) were taken. Prior study comparison: January 16, 2019, bilateral MG 3d diag mammo w/cad KOMAL. January 21, 2018, right breast MG 3d work up w/cad RT. The breast tissue is extremely dense which could obscure a lesion on mammography. Finding: There are round, diffuse/scattered calcifications in the right breast. No significant changes in finding since January 16, 2019 and January 21, 2018. ASSESSMENT: Benign, BI-RAD 2 RECOMMENDATION: Routine screening mammogram of both breasts in 1 year.
== END | disposition home or self-care (01) ==
LOC: RADMAMWWP 10:09
PROVIDERS: ATTEND Family Medicine
DX: Z12.31 Encounter for screening mammogram for malignant neoplasm of breast (principal)
CPT/HCPCS: 77063; 77067

== ENCOUNTER → 2020-05-26 | Outpatient (CLI) | payer MEDICARE ==
[2020-05-26 20:19] LABS: African American GFR (CKD) 103.9 (60.0-200.0); Anion Gap 9.3 mmol/L (4.00-12.00); Calcium 9.9 mg/dL (8.7-10.3); Carbon Dioxide 27.7 mmol/L (21.6-31.8); Magnesium 1.7 mg/dL (1.5-2.4); Non-African American GFR(CKD) 89.7 (60.0-200.0); Phosphorus 3.3 mg/dL (2.4-5.1); Potassium 4.2 mmol/L (3.5-5.5); Uric Acid 5.8 mg/dL (2.9-7.7)
== END | disposition home or self-care (01) ==
LOC: LABWHC1 10:16
PROVIDERS: ATTEND Urology
DX: N20.0 Calculus of kidney (principal)
CPT/HCPCS: 36415; 80051; 82310; 82565; 83735; 84100; 84550

== ENCOUNTER → 2021-04-04 | Outpatient (CLI) | payer MEDICARE ==
[2021-04-04 18:56] LABS: Chol/HDL Ratio 3.24 Ratio; LDL Cholesterol,Calculated 85.2 mg/dL (0.0-131.0); VLDL Calculation 35.8 mg/dL (5.00-40.00)
== END | disposition home or self-care (01) ==
LOC: LABWHC1 09:25
PROVIDERS: ATTEND Internal Medicine Cardiovascular Disease
DX: E78.00 Pure hypercholesterolemia, unspecified (principal); N20.0 Calculus of kidney
CPT/HCPCS: 36415; 80061; 84450; 84460

== ENCOUNTER → 2021-05-02 | Outpatient (CLI) | payer MEDICARE ==
--- NOTE | 2021-05-02 13:57 | XR ---
KUB HISTORY: N20.0 Frontal KUB submitted on 2 images and correlated to prior exam 11/18/2019 . Changes are noted to L4 status post laminectomies. There is a spinal curvature present, degenerativ e disc changes in visualized spine. Calcifications superimposed over the left kidney suspected, there is overlying bowel gas obscuring detail however, an oval calcification at the lower pole level measu res proximally 1 cm, the midpole suspect calcifications overlying the 11th rib, multiple small calcif ications overlying the lower pole left kidney measuring approximately 3 to 5 mm. There are probable v ascular calcifications in the pelvis. The nephrostomy tube with Malecot extension has been removed. IMPRESSION: Left-sided nephrolithiasis
== END | disposition home or self-care (01) ==
LOC: RADXRMAIN 11:52
PROVIDERS: ATTEND Urology
DX: N20.0 Calculus of kidney (principal)
CPT/HCPCS: 74018

== ENCOUNTER → 2021-08-10 | Outpatient (CLI) | payer MEDICARE ==
--- NOTE | 2021-08-14 09:36 | MM ---
Reason for exam: screening (asymptomatic). Last mammogram was performed 1 year and 2 months ago. History: Patient is postmenopausal. Family history of breast cancer in sister at age 70. Benign MG stereo VAD BX RT of the right breast, May 15, 2018. MG discontinued stereo core RT of the right breast, February 14, 2018. Benign excisional biopsy of the left breast, August 10, 1998. Physical Findings: A clinical breast exam by your physician is recommended on an annual basis and results should be correlated with mammographic findings. MG 3D Screening Mammo W/Cad Bilateral CC and MLO view(s) were taken. Prior study comparison: May 26, 2020, bilateral MG 3d screening mammo w/cad. January 16, 2019, bilateral MG 3d diag mammo w/cad KOMAL. The breast tissue is heterogeneously dense. This may lower the sensitivity of mammography. Finding: There are typically benign, fine, diffuse/scattered calcifications in both breasts. No significant changes in finding since May 26, 2020 and January 16, 2019. ASSESSMENT: Benign, BI-RAD 2 RECOMMENDATION: Routine screening mammogram of both breasts in 1 year.
== END | disposition home or self-care (01) ==
LOC: RADMAMWWP 10:13
PROVIDERS: ATTEND Family Medicine
DX: Z12.31 Encounter for screening mammogram for malignant neoplasm of breast (principal); Z78.0 Asymptomatic menopausal state; Z80.3 Family history of malignant neoplasm of breast
CPT/HCPCS: 77063; 77067

== ENCOUNTER → 2021-10-10 | Outpatient (CLI) | payer MEDICARE ==
--- NOTE | 2021-10-10 11:59 | MR ---
EXAMINATION TYPE: MR lumbar spine wo con DATE OF EXAM: 10/10/2021 COMPARISON: Lumbar spine x-ray July 26, 2021 HISTORY: Low back pain that radiates into left hip and down leg, 3-5 years. TECHNIQUE: Multiplanar, multisequence imaging of the lumbar spine is performed without IV contrast. FINDINGS: Persistent levoconvex scoliosis centered near the thoracolumbar junction. Persistent grade 1 anterolisthesis L4 and L5. Sagittal images of the lumbar spine show vertebral body heights to remai n satisfactory. Multilevel disc desiccation in the lumbar spine. Mild disc space narrowing L4-L5 leve l redemonstrated. Mild multilevel anterior spurring. The conus medullaris is normal in position and s ignal ending mid L1 level. The bone marrow signal intensity is within normal limits. Axial images show T12-L1 and L1-L2 levels to appear within normal limits. Axial images at L2-L3 level show [id number] broad disc bulge minimally effaces the anterior the rusty sac and causing mild to moderate bilateral anterior inferior neural foraminal narrowing. Axial images at L3-L4 level show mild to moderate facet arthropathy and ligament flavum hypertrophy e ffacing posterolateral thecal sac. There is mild broad disc bulge mildly effacing anterior thecal sac . There is moderate to severe left greater than right bilateral neural foraminal narrowing. Axial images at L4-L5 level show spondylolisthesis with moderate to advanced facet arthropathy. There is prior posterior bilateral laminectomy defects and spinous process resection. There is moderate ri ght and severe left-sided neural foraminal narrowing. Axial images at L5-S1 level show mild/moderate facet arthropathy bilaterally. Focal central disc prot rusion and annular tear is present. Spinal canal is preserved. Patent bilateral neural foramina. Paraspinal muscle bulk is maintained. IMPRESSION: Successful posterior decompression at L4-L5 level. Multilevel degenerative changes as det lucina above. Significant left-sided encroachment at L3-L4 and and L4-L5 levels is noted. There is fel t to encroachment on the exiting left L4 nerve at L4-L5 level.
== END | disposition home or self-care (01) ==
LOC: RADMRIMAIN 11:03
PROVIDERS: ATTEND Orthopaedic Surgery
DX: M47.26 Other spondylosis with radiculopathy, lumbar region (principal); M51.17 Intervertebral disc disorders with radiculopathy, lumbosacral region; M43.16 Spondylolisthesis, lumbar region
CPT/HCPCS: 72148

== ENCOUNTER → 2022-04-30 | Outpatient (CLI) | payer MEDICARE ==
--- NOTE | 2022-04-30 14:41 | XR ---
EXAMINATION TYPE: XR KUB DATE OF EXAM: 04/30/2022 COMPARISON: 05/02/2021 HISTORY: Pain TECHNIQUE: One view abdominal series FINDINGS: The osseous structures are intact. The bowel gas pattern is nonspecific. There is a 9 mm lower pole left renal calculus.. IMPRESSION: 1. 9 mm lower pole left renal calculus..
== END | disposition home or self-care (01) ==
LOC: RADXRMAIN 14:18
PROVIDERS: ATTEND Urology
DX: N20.0 Calculus of kidney (principal)
CPT/HCPCS: 74018

== ENCOUNTER → 2022-05-17 | Outpatient (CLI) | payer MEDICARE ==
[2022-05-17 12:41] VITALS: BP 164/90; PULSE 74; RESP 16; TEMP 98
--- NOTE | 2022-05-17 14:23 | P.PAINPG ---
PQRS Measure Charge Sheet Comment: HISTORY OF PRESENT ILLNESS: 71 yr old female as a referral from Dr. Bacon presents today with severe and chronic L LBP secondary to DDD, spondylolisthesis and facet arthropathy without myelopathy for evaluation. Pt states her pain level is currently at 5/10 in intensity, constant, pressure in character, localized in the L lower lumbar spine w sharp shooting pain to the L thigh. Pain is provoked w lifting and bending. Palliated w PT x 6 wks in October 2020, medications (Ibu), home exercise regimen as tolerated, sitting and rest. PMH: Hyperlipidemia, Hypertension PSH: Breast Biopsy, Bladder suspension (2002), Cervical Nerve cystectomy (2007) SH: Negative x 3 FH: Mother- HTN, Hyperlipidemia. Father- HTN, CHF. All: NKDA Meds: See list REVIEW OF ORGAN SYSTEMS: CONSTITUTIONAL: No fevers or chills. No recent weight loss. NEUROLOGICAL: + numbness and tingling along the distal extremities. No seizure disorders or headaches. MUSCULOSKELETAL: + pain PSYCHIATRIC: Denies current depression or suicidal thoughts. Physical Examinations : Constitutional : Cooperative , not in acute distress . Neurologic : Cranial nerve II to XII intact. No focal neurological deficits. Psychiatric : alert & oriented x 3. Matching mood & appropriate affect. Judgment & insight intact. Musculoskeletal : Cervical Spine Motor strength in the deltoid and biceps: Normal right side. Normal Left side Motor strength biceps and the wrist extensors: Normal right side . Normal left side Motor strength in the triceps muscle: Normal right side. Normal left side Deep tendon reflexes: Normal at the biceps. Normal at Brachioradialis. Normal at triceps Vertebral body tenderness to deep palpation over Cervical facet loading test: positive bilaterally Spurling test: positive bilaterally Neck distraction test: positive bilaterally Terence sign: positive bilaterally Lumbar spine Motor strength lower extremities ,thigh and legs 5/5 Right side , 5/5 Left side Deep tendon reflexes : Normal Knee Jerk. Normal Ankle Jerk Vertebral body tenderness over L4 Lumbar facet Loading Test: positive Right / positive Left Range of motion of the lumbar spine Flexion 30 degrees, extension 10 degrees Straight Leg Raise test: Left/ Right positive at degree Raul test: positive right / positive left. Severe tenderness over the Sacroiliac joint on the Right / Left sides Gaenslen test: positive bilaterally Seated flexion test: positive bilaterally. Sacral spine : Severe tenderness over the Sacroiliac joint: right side / left side Range of motion: Flexion of the lumbar spine <60 degrees Range of motion: Extension of the lumbar spine <20 degrees Gaenslen's Test positive Low's Test positive Raul test: positive right side / left side Thigh Thrust Test Sacral Thrust Test Imaging: MRI without contrast of the lumbar spine from 10/10/21 reviewed Assessment/ Plan : Lumbar spondylolisthesis, lumbar DDD Recommendation of LIAM L4-L5. May need a series of injections, up to 3 within a 6 month timeframe, for optimal pain relief. Risks, benefits of procedure discussed and patient verbalized understanding. Admits to aspirin or anti- coagulant use o r medical history of diabetes. Protocol for discontinuation/ continuation of medications joey procedure discussed. All questions answered. I have spent greater than 30 minutes on patient care today. Dr Deleon was available by phone for the evaluation of this patient. The time was used to review the medical records including relevant urine studies and Prescription history (MAPs), review of the available imaging, evaluation and examination of the patient, coordination of care with the medical staff and if applicable referring physicians, as well as creation of the medical record PQRS Narrative: Smoking Status Never smoker Home Medications: Ambulatory Orders Aspirin 81 mg PO HS 01/29/18 Calcium Carbonate [Calcium] 600 mg PO DAILY 01/29/18 Cholecalciferol (Vitamin D3) [Vitamin D3] 2,000 cap PO DAILY 01/29/18 Krill/[place]-3/Dha/Epa/Lipids [Krill Oil 350 mg Softgel] 350 mg PO DAILY 01/29/18 Losartan [Cozaar] 50 mg PO HS 01/29/18 Rosuvastatin [Crestor] 40 mg PO HS 04/28/18 Acetaminophen Tab [Tylenol] 325 - 650 mg PO DIRECTED PRN 11/06/19 Vit C/E/Zn/Coppr/Lutein/Zeaxan [Preservision Areds 2 Softgel] 1 each PO DAILY 11/06/19 Ciprofloxacin HCl [Cipro] 500 mg PO BID 11/11/19 HYDROcodone/APAP 5-325MG [[place] 5-325] 1 each PO Q4HR PRN tab 11/13/19 Controlled Substance Measures - Controlled Substance Measures Is patient prescribed a controlled substance at discharge?: No
== END ==
LOC: PNWHC3 10:13
PROVIDERS: ATTEND Specialist
DX: M51.36 Other intervertebral disc degeneration, lumbar region (principal); M43.16 Spondylolisthesis, lumbar region; Z79.82 Long term (current) use of aspirin
CPT/HCPCS: 99211

== ENCOUNTER 2022-07-12 09:56 | Day surgery (SDC) | payer MEDICARE ==
[~2022-07-12 09:56] MED LIST changes: -AMPICILLIN 1,000 MG in SODIUM CHLORIDE 0.9% 50 ML IVPB ONE; -DEXAMETHASONE SOD PHOSPHATE 10 MG/ML 1 ML VIAL IV ONE; -GENTAMICIN 90 MG in SODIUM CHLORIDE 0.9% 100 ML IVPB ONE; -HYDROmorphone 0.5 MG/0.5 ML SYRINGE IVP PRN; +LACTATED RINGERS 1,000 ML IV SCH; +LIDOCAINE 1% (10MG/ML) FOR IV START INTRADERMA PRN; -ONDANSETRON 4 MG/2 ML VIAL IVP ONE
[2022-07-12] MEDS ORDERED: LACTATED RINGERS 1,000 ML IV ONE (10:30)
[2022-07-12 10:32] VITALS: TEMP 98.2
[2022-07-12] MEDS ORDERED: fentaNYL (PF) 50 MCG/ML 2 ML AMP ONE (10:39)
[2022-07-12] MEDS ORDERED: MIDAZOLAM 2 MG/2 ML VIAL ONE (10:39)
[2022-07-12] MEDS ORDERED: IOPAMIDOL M200 10 ML VIAL ONE (10:39)
[2022-07-12] MEDS ORDERED: methylPREDNISolone ACETATE 40 MG/ML 1 ML VIAL ONE (10:39)
--- NOTE | 2022-07-12 10:51 | P.PCN ---
Date of Procedure: 07/12/22 Procedure(s) Performed: PREOPERATIVE DIAGNOSIS: 1- Lumbar Degenerative Disc Diseases 2-Lumbar spondylosis with Facet arthropathy without myelopathy. 3-lumbar spinal stenosis POSTOPERATIVE DIAGNOSIS: Same as preop diagnosis. PROCEDURE 1. Lumbar epidural steroid injection under fluoroscopic guidance at the L4-5 level. (Fluoroscopy imaging was available in radiology department) 2. Lumbar epidurogram. ANESTHESIA: moderate sedation with intravenous Versed 1 mg ,and fentanyle 50 Mcg Sedation start time : 1044 Sedation end time : 1048 EBL: Minimal PROCEDURE INDICATION: The patient with low back pain and radiculitis symptoms unresponsive to conservative treatment. Fluoroscopy was used to optimize visualization of the needle placement and to maximize safety. PROCEDURE DESCRIPTION / TECHNIQUE: The patient was seen and identified in the preoperative area. Risks, benefits, complications including but not limited to infections ,bleeding ,allergic reaction to the medications ,nerve damage and not complete pain releife , and alternatives were discussed with the patient. The patient agreed to proceed with the procedure and signed the consent. IV was started, and vital signs were stable. Patient was taken to the OR and time out was completed. The patient was placed in the prone position on procedure table and a pillow was placed under the abdomen to reduce lumbar lordosis. The lumbosacral area was prepped and draped in the usual sterile fashion.ere closely monitored during the procedure. Conscious sedation was used during the procedure to decrease patients anxiety. Vital signs was monitered during the entire procedure. Using anterior-posterior fluoroscopy, the L4-5 interlaminar space was identified and the skin over this site was marked and then infiltrated with 1% lidocaine subcutaneously. Subsequently, a 20-gauge Tuohy epidural needle was inserted and advanced toward the epidural space using the ``Loss of resistance technique and guided by AP and lateral fluoroscopy. The correct needle position in the epidural space was verified with the injection of 2 mL of the water soluble contrast dye Isovue 200 contrast and observing an excellent epidurogram with the epidural spread of the dye, after negative aspiration for blood and CSF and in the absence of paresthesias. Again after negative aspiration, a 6 ml mixture containing 40 mg of Depo-medrol ( Preservetive Free ), and 2 ml of preservative free Normal Saline, and 2 ml of preservative free lidocaine 1% solution was injected and a washout of epidurogram was seen. Needle was withdrawn intact, skin was cleansed, and bandages were applied. COMPLICATIONS: None DISPOSITION / PLANS: The patient was placed in a supine position and transferred to the recovery area in a stable condition for observation. There was no evidenc e of lower extremity motor or sensory deficit after the procedure. Patient was discharged from the recovery room after meeting discharge criteria. Home discharge instructions were given to the patient by the staff. The patient was reexamined prior to discharge. The patient will schedule a follow up in the clinic in 2-4 weeks.
[2022-07-12] MEDS ORDERED: IV FLUID CONTINUATION 750 ML IV ONE (10:55)
[2022-07-12 11:00] VITALS: RESP 20
[2022-07-12 11:23] VITALS: BP 114/71; PULSE 83
--- NOTE | 2022-07-12 12:01 | FL ---
EXAMINATION TYPE: FL guided pain mgmt statistic DATE OF EXAM: 07/12/2022 CLINICAL HISTORY: Lumbar epidural steroid injection TECHNIQUE: Fluoroscopy. COMPARISON: None. FINDINGS: Fluoroscopic guidance was provided during procedure performed by Dr. Deleon. A total of 1 second of fluoroscopic time was utilized during the procedure and 1 spot images was acquired. Plea se see separate report for procedural details. IMPRESSION: As Above.
== END 2022-07-12 11:58 | disposition home or self-care (01) ==
LOC: ORPAIN 09:56
PROVIDERS: ATTEND Specialist
DX: M51.16 Intervertebral disc disorders with radiculopathy, lumbar region (principal); M48.061 Spinal stenosis, lumbar region without neurogenic claudication; M47.26 Other spondylosis with radiculopathy, lumbar region
CPT/HCPCS: 62323; J2250; J1030; J3010; Q9966

== ENCOUNTER → 2023-06-19 | Outpatient (CLI) | payer MEDICARE ==
--- NOTE | 2023-06-19 16:20 | XR ---
EXAMINATION TYPE: XR KUB DATE OF EXAM: 06/19/2023 2:50 PM CLINICAL INDICATION:Female, 72 years old with history of N20.0; [facility] COMPARISON: None. TECHNIQUE: One radiographic view of the abdomen was obtained. FINDINGS: The bowel gas pattern is nonspecific without dilated loops of small or large bowel. There i s no evidence for organomegaly or pneumoperitoneum. The osseous structures are intact. No abnormal calcifications are present. Fecal material and gas are demonstrated throughout the colon and rectum. IMPRESSION: Nonspecific bowel gas pattern without radiographic evidence for acute process.
== END | disposition home or self-care (01) ==
LOC: RADXRMAIN 14:40
PROVIDERS: ATTEND Urology
DX: N20.0 Calculus of kidney (principal); R14.0 Abdominal distension (gaseous)
CPT/HCPCS: 74018

== ENCOUNTER → 2023-07-10 | Outpatient (CLI) | payer MEDICARE ==
[2023-07-10 13:42] VITALS: BP 168/78; PULSE 76; RESP 15; TEMP 98.6
--- NOTE | 2023-07-10 13:44 | P.PAINPG ---
Objective - Vital Signs Vital signs: Intake & Output 07/09/23 07/10/23 07/10/23 18:59 06:59 18:59 Weight 76.204 kg PQRS Measure Charge Sheet Comment: HISTORY OF PRESENT ILLNESS: A 73 yr old female presents today with severe and chronic L LBP secondary to DDD, spondylolisthesis and facet arthropathy without myelopathy for evaluation s/p LIAM L4-L5 #1. Pt states she experienced 80 % pain relief x 8 mo s/p procedure. Pt states her pain level is currently at 8/10 in intensity, constant, predominantly axial, pressure in character, localized in the L lower lumbar spine w occasional sharp shooting pain to the LLE. Pain is provoked w lifting and bending. Palliated w PT x 6 wks in October 2020, physician guided home exercises/ stretches 5 times weekly since October 2020, medications, home exercise regimen as tolerated, sitting and rest. Oswestry axial pain score of 27. Interventional procedures include LIAM L4-L5 x1 Medications include Ibu REVIEW OF ORGAN SYSTEMS: CONSTITUTIONAL: No fevers or chills. No recent weight loss. NEUROLOGICAL: + numbness and tingling along the distal extremities. No seizure disorders or headaches. MUSCULOSKELETAL: + pain PSYCHIATRIC: Denies current depression or suicidal thoughts. Physical Examinations : Constitutional : Cooperative , not in acute distress . Neurologic : Cranial nerve II to XII intact. No focal neurological deficits. Psychiatric : alert & oriented x 3. Matching mood & appropriate affect. Judgment & insight intact. Musculoskeletal : Cervical Spine Motor strength in the deltoid and biceps: Normal right side. Normal Left side Motor strength biceps and the wrist extensors: Normal right side . Normal left side Motor strength in the triceps muscle: Normal right side. Normal left side Deep tendon reflexes: Normal at the biceps. Normal at Brachioradialis. Normal at triceps Vertebral body tenderness to deep palpation over Cervical facet loading test: positive bilaterally Spurling test: positive bilaterally Neck distraction test: positive bilaterally Terence sign: positive bilaterally Lumbar spine Motor strength lower extremities ,thigh and legs 5/5 Right side , 5/5 Left side Deep tendon reflexes : Normal Knee Jerk. Normal Ankle Jerk Vertebral body tenderness over L4 Lumbar facet Loading Test: positive Right / positive Left Range of motion of the lumbar spine Flexion 30 degrees, extension 10 degrees Straight Leg Raise test: Left/ Right positive at <35 degrees Raul test: positive right / positive left. Severe tenderness over the Sacroiliac joint on the Right / Left sides Gaenslen test: positive bilaterally Seated flexion test: positive bilaterally. Sacral spine : Severe tenderness over the Sacroiliac joint: right side / left side Range of motion: Flexion of the lumbar spine <60 degrees Range of motion: Extension of the lumbar spine <20 degrees Gaenslen's Test positive Low's Test positive Raul test: positive right side / left side Thigh Thrust Test Sacral Thrust Test Imaging: MRI without contrast of the lumbar spine from 10/10/21 reviewed Assessment/ Plan : Lumbar spondylolisthesis, lumbar DDD Recommendation of LIAM L4-L5 #2. Series of injections for optimal pain relief. Risks, benefits of procedure discussed and patient verbalized understanding. Protocol for discontinuation/continuation of medications surrounding procedure discussed. All questions answered. I have spent greater than 30 minutes on patient care today. Dr Deleon was av ailable by phone for the evaluation of this patient. The time was used to review the medical records including relevant urine studies and Prescription history (MAPs), review of the available imaging, evaluation and examination of the patient, coordination of care with the medical staff and if applicable referring physicians, as well as creation of the medical record - Pain Location Bilateral Lower Back Non-Pharmacological Interventions: Inactivity, Position/Reposition, Sitting Pharmacological Interventions: Epidural, PRN Medication PQRS Narrative: Smoking Status Never smoker Hx Alcohol Use (MH) No Home Medications: Ambulatory Orders Aspirin 81 mg PO HS 01/29/18 Calcium Carbonate [Calcium] 600 mg PO DAILY 01/29/18 Cholecalciferol (Vitamin D3) [Vitamin D3] 1,000 cap PO DAILY 01/29/18 Krill/[place]-3/Dha/Epa/Lipids [Krill Oil 350 mg Softgel] 350 mg PO DAILY 01/29/18 Losartan [Cozaar] 50 mg PO HS 01/29/18 Rosuvastatin [Crestor] 40 mg PO HS 04/28/18 Acetaminophen Tab [Tylenol] 325 - 650 mg PO DIRECTED PRN 11/06/19 Vit C/E/Zn/Coppr/Lutein/Zeaxan [Preservision Areds 2 Softgel] 1 each PO DAILY 11/06/19 Cyanocobalamin (Vitamin B-12) [Vitamin B-12] 1,000 mcg PO DAILY 01/24/23 Ibuprofen [Motrin] 800 mg PO Q8H PRN 07/10/22 Turmeric Root Extract [Turmeric] 500 mg PO DAILY 07/10/22 Unk Multi Vitamin 1 tab PO DAILY 07/10/22 Controlled Substance Measures - Controlled Substance Measures Is patient prescribed a controlled substance at discharge?: No
== END ==
LOC: PNWHC3 13:14
PROVIDERS: ATTEND Specialist
DX: M51.36 Other intervertebral disc degeneration, lumbar region (principal); M43.16 Spondylolisthesis, lumbar region; Z79.82 Long term (current) use of aspirin
CPT/HCPCS: 99211

== ENCOUNTER 2023-07-25 11:30 | Day surgery (SDC) | payer MEDICARE ==
[2023-07-22 09:48] VITALS: BMI 28.8
[~2023-07-25 11:30] MED LIST changes: -LIDOCAINE 1% (10MG/ML) FOR IV START INTRADERMA PRN
[2023-07-25 12:02] VITALS: RESP 16; TEMP 98.9
[2023-07-25] MEDS ORDERED: methylPREDNISolone ACETATE 80 MG/ML 1 ML VIAL ONE (13:01)
[2023-07-25] MEDS ORDERED: IOPAMIDOL M200 10 ML VIAL ONE (13:01)
--- NOTE | 2023-07-25 13:08 | P.PCN ---
Date of Procedure: 07/25/23 Procedure(s) Performed: PREOPERATIVE DIAGNOSIS: 1- Lumbar Degenerative Disc Diseases 2-Lumbar spondylosis with Facet arthropathy without myelopathy. 3-previous lumbar laminectomy surgery. POSTOPERATIVE DIAGNOSIS: Same as preop diagnosis. PROCEDURE 1. Lumbar epidural steroid injection under fluoroscopic guidance at the L4-5 level. (Fluoroscopy imaging was available in radiology department) 2. Lumbar epidurogram. ANESTHESIA: none . EBL: Minimal PROCEDURE INDICATION: The patient with low back pain and radiculitis symptoms unresponsive to conservative treatment. Fluoroscopy was used to optimize visualization of the needle placement and to maximize safety. PROCEDURE DESCRIPTION / TECHNIQUE: The patient was seen and identified in the preoperative area. Risks, benefits, complications including but not limited to infections ,bleeding ,allergic reaction to the medications ,nerve damage and not complete pain releife , and alternatives were discussed with the patient. The patient agreed to proceed with the procedure and signed the consent, and vital signs were stable. Patient was taken to the OR and time out was completed. The patient was placed in the prone position on procedure table and a pillow was placed under the abdomen to reduce lumbar lordosis. The lumbosacral area was prepped and draped in the usual sterile fashion.ere closely monitored during the procedure. Vital signs was monitered during the entire procedure. Using anterior-posterior fluoroscopy, the L4-5 interlaminar space was identified and the skin over this site was marked and then infiltrated with 1% lidocaine subcutaneously. Subsequently, a 20-gauge Tuohy epidural needle was inserted and advanced toward the epidural space using the ``Loss of resistance technique and guided by AP and lateral fluoroscopy. The correct needle position in the epidural space was verified with the injection of 2 mL of the water soluble contrast dye Isovue 200 contrast and observing an excellent epidurogram with the epidural spread of the dye, after negative aspiration for blood and CSF and in the absence of paresthesias. Again after negative aspiration, a 6 ml mixture containing 60 mg of Depo-medrol ( Preservetive Free ), and 2 ml of preservative free Normal Saline, and 2 ml of preservative free lidocaine 1% solution was injected and a washout of epidurogram was seen. Needle was withdrawn intact, skin was cleansed, and bandages were applied. COMPLICATIONS: None DISPOSITION / PLANS: The patient was placed in a supine position and transferred to the recovery area in a stable condition for observation. There was no evidence of lower extremity motor or sensory deficit after the procedure. Patient was discharged from the recovery room after meeting discharge criteria. Home discharge instructions were given to the patient by the staff. The patient was reexamined prior to discharge. The patient will schedule a follow up in the clinic in 2-4 weeks.
--- NOTE | 2023-07-25 13:16 | FL ---
EXAMINATION TYPE: FL guided pain mgmt statistic DATE OF EXAM: 07/25/2023 HISTORY: Fluoroscopy time Total dose area product (DAP) in uGy*m?, mGy*cm? (or similar): 0.46881 IMPRESSION: 1. Fluoroscopy time.
[2023-07-25 13:34] VITALS: BP 144/79; PULSE 65
== END 2023-07-25 13:39 | disposition home or self-care (01) ==
LOC: ORPAIN 11:30
PROVIDERS: ATTEND Specialist
DX: M51.36 Other intervertebral disc degeneration, lumbar region (principal); M47.26 Other spondylosis with radiculopathy, lumbar region; M96.1 Postlaminectomy syndrome, not elsewhere classified; Z79.82 Long term (current) use of aspirin
CPT/HCPCS: 62323; J1040; Q9966

== ENCOUNTER → 2023-08-21 | Outpatient (CLI) | payer MEDICARE ==
--- NOTE | 2023-08-21 13:56 | P.PAINPG ---
PQRS Measure Charge Sheet Comment: HISTORY OF PRESENT ILLNESS: A 73 yr old female presents today with severe and chronic L LBP secondary to DDD, spondylolisthesis and facet arthropathy without myelopathy for evaluation s/p ILAM L4-L5 #2. Pt states she experienced 70 % pain relief x 4 wks s/p procedure. Pt states her pain level is currently at 2 /10 in intensity, constant, predominantly axial, pressure in character, localized in the L lower lumbar spine w occasional sharp shooting pain to the LLE. Pain is provoked w lifting and bending. Palliated w PT x 6 wks in October 2020, physician guided home exercises/ stretches 5 times weekly since October 2020, medications, home exercise regimen as tolerated, sitting and rest. Oswestry axial pain score of 23. Interventional procedures include LIAM L4-L5 x2 Medications include Ibu REVIEW OF ORGAN SYSTEMS: CONSTITUTIONAL: No fevers or chills. No recent weight loss. NEUROLOGICAL: + numbness and tingling along the distal extremities. No seizure disorders or headaches. MUSCULOSKELETAL: + pain PSYCHIATRIC: Denies current depression or suicidal thoughts. Physical Examinations : Constitutional : Cooperative , not in acute distress . Neurologic : Cranial nerve II to XII intact. No focal neurological deficits. Psychiatric : alert & oriented x 3. Matching mood & appropriate affect. Judgment & insight intact. Musculoskeletal : Cervical Spine Motor strength in the deltoid and biceps: Normal right side. Normal Left side Motor strength biceps and the wrist extensors: Normal right side . Normal left side Motor strength in the triceps muscle: Normal right side. Normal left side Deep tendon reflexes: Normal at the biceps. Normal at Brachioradialis. Normal at triceps Vertebral body tenderness to deep palpation over Cervical facet loading test: positive bilaterally Spurling test: positive bilaterally Neck distraction test: positive bilaterally Terence sign: positive bilaterally Lumbar spine Motor strength lower extremities ,thigh and legs 5/5 Right side , 5/5 Left side Deep tendon reflexes : Normal Knee Jerk. Normal Ankle Jerk Vertebral body tenderness over L4 Lumbar facet Loading Test: positive Right / positive Left Range of motion of the lumbar spine Flexion 30 degrees, extension 10 degrees Straight Leg Raise test: Left/ Right positive at <35 degrees Raul test: positive right / positive left. Severe tenderness over the Sacroiliac joint on the Right / Left sides Gaenslen test: positive bilaterally Seated flexion test: positive bilaterally. Sacral spine : Severe tenderness over the Sacroiliac joint: right side / left side Range of motion: Flexion of the lumbar spine <60 degrees Range of motion: Extension of the lumbar spine <20 degrees Gaenslen's Test positive Low's Test positive Raul test: positive right side / left side Thigh Thrust Test Sacral Thrust Test Imaging: MRI without contrast of the lumbar spine from 10/10/21 reviewed Assessment/ Plan : Lumbar spondylolisthesis, lumbar DDD Will manage residual pain and may RTC on an as needed basis. All questions answered. I have spent greater than 30 minutes on patient care today. Dr Deleon was available by phone for the evaluation of this patient. The time was used to review the medical records including relevant urine studies and Prescription history (MAPs), review of the available imaging, evaluation and examination of the patient, coordination of care with the medical staff and if applicable referring physicians, as well as creation of the medical record PQRS Narrative: Smoking Status Never smoker Hx Alcohol Use (MH) No Home Medications: Ambulatory Orders Aspirin 81 mg PO HS 01/29/18 Calcium Carbonate [Calcium] 600 mg PO DAILY 01/29/18 Cholecalciferol (Vitamin D3) [Vitamin D3] 1,000 cap PO DAILY 01/29/18 Krill/[place]-3/Dha/Epa/Lipids [Krill Oil 350 mg Softgel] 350 mg PO DAILY 01/29/18 Losartan [Cozaar] 50 mg PO HS 01/29/18 Rosuvastatin [Crestor] 40 mg PO HS 04/28/18 Vit C/E/Zn/Coppr/Lutein/Zeaxan [Preservision Areds 2 Softgel] 1 each PO DAILY 11/06/19 Ibuprofen [Motrin] 800 mg PO Q8H PRN 07/10/22 Turmeric Root Extract [Turmeric] 450 mg PO DAILY 07/10/22 Ibuprofen [Motrin Ib] 200 mg PO Q8H PRN 07/22/23 Controlled Substance Measures - Controlled Substance Measures Is patient prescribed a controlled substance at discharge?: No
[2023-08-21 13:57] VITALS: BP 152/88; PULSE 71; RESP 15; TEMP 98.5
== END ==
LOC: PNWHC3 13:07
PROVIDERS: ATTEND Specialist
DX: M51.36 Other intervertebral disc degeneration, lumbar region (principal); M43.16 Spondylolisthesis, lumbar region; Z79.82 Long term (current) use of aspirin
CPT/HCPCS: 99211

== ENCOUNTER → 2023-08-21 | Outpatient (CLI) | payer MEDICARE ==
--- NOTE | 2023-08-22 19:15 | MM ---
Reason for Exam: Screening (asymptomatic). Last screening mammogram was performed 12 month(s) ago. Patient History: Menarche at age 13. First Full-Term at age 29. Postmenopausal. Patient has history of breast feeding. 05/15/2018, Benign Core Biopsy on the right side. 08/10/1998, Benign Excisional Biopsy on the left side. 02/14/2018, MG discontinued stereo core RT on the right side. Niece had breast cancer under age 50. Sister had breast cancer, left, age 70. Risk Values: Fuentes 5 year model risk: 5.6%. NCI Lifetime model risk: 14.8%. Prior Study Comparison: 05/26/2020 Bilateral Screening Mammogram, [facility]. 08/10/2021 Bilateral Screening Mammogram, [facility]. 08/16/2022 Bilateral MG 3D screening mammo w/cad, [facility]. Tissue Density: The breasts are heterogeneously dense, which may obscure small masses. Findings: Analyzed By CAD. Microclip right breast from prior biopsy. Chronic fluctuating nodularity anteriorly on the right. Bilateral areas of asymmetric densities are unchanged. Scattered bilateral calcifications are also unchanged. There is no suspicious group of microcalcifications or new suspicious mass in either breast. Overall Assessment: Benign, BI-RAD 2 Management: Screening Mammogram of both breasts in 1 year. SEE NOTE BELOW IN REGARDS TO PATIENT'S INCREASED FIVE-YEAR FUENTES SCORE. Patient should continue monthly self-breast exams. A clinical breast exam by your physician is recommended on an annual basis. This exam should not preclude additional follow-up of suspicious palpable abnormalities. Note on Fuentes scores and lifetime risk: 1. A Fuentes score greater than 3% is considered moderate risk. If this is the case, consider specialist referral to assess eligibility for a risk reducing agent. 2. If overall lifetime risk for the development of breast cancer is 20% or higher, the patient may qualify for future screening with alternating mammogram and breast MRI. Electronically signed and approved by: Radhika Cerda M.D. Radiologist
== END | disposition home or self-care (01) ==
LOC: RADMAMWWP 12:13
PROVIDERS: ATTEND Family Medicine
DX: Z12.31 Encounter for screening mammogram for malignant neoplasm of breast (principal); Z80.3 Family history of malignant neoplasm of breast; Z78.0 Asymptomatic menopausal state
CPT/HCPCS: 77063; 77067

== ENCOUNTER → 2024-06-23 | Outpatient (CLI) | payer MEDICARE ==
--- NOTE | 2024-06-23 14:09 | XR ---
EXAMINATION TYPE: XR KUB DATE OF EXAM: 06/23/2024 12:43 PM COMPARISON: 06/19/2023 CLINICAL INDICATION: Female, 73 years old with history of N20.0 CALCULUS OF KIDNEY, , FINDINGS: Previous L4 laminectomy change. Lobulated 1.8 cm calcification left midabdomen, possible staghorn rusty culus. Vascular calcifications in the pelvis. Nonobstructive bowel gas pattern. Scattered mild stable . IMPRESSION: Possible 1.8 cm staghorn calculus on the left. [facility], Workstation: [facility], 06/23/2024 2:07 PM
== END | disposition home or self-care (01) ==
LOC: RADXRMAIN 12:26
PROVIDERS: ATTEND Urology
DX: N20.0 Calculus of kidney (principal)
CPT/HCPCS: 74018

== ENCOUNTER → 2024-07-21 | Outpatient (CLI) | payer MEDICARE ==
[2024-07-21 19:09] LABS: Calcium 10.6 mg/dL (8.7-10.3); Carbon Dioxide 27.1 mmol/L (21.6-31.8); Chloride 104 mmol/L (96-109); Glucose 95 mg/dL (70-110); Potassium 4.3 mmol/L (3.5-5.5); Sodium 143 mmol/L (135-145)
[2024-07-21 19:13] LABS: HCT 41.2 % (37.2-46.3); HGB 13.6 g/dL (12.0-15.0); MCH 33.5 pg (27.0-32.0); MCV 101.5 FL (80.0-97.0); Mean Platelet Volume 9.4 FL (9.5-12.2); NRBC Per 100 WBC 0 X 10*3/uL (0.00-0.01); Platelet Count 259 X 10*3/uL (140-440); RBC 4.06 X 10*6/uL (4.10-5.20); RDW 13.3 % (11.5-14.5); WBC 5.69 X 10*3/uL (4.50-10.00)
== END | disposition home or self-care (01) ==
LOC: LABWHC1 12:39
PROVIDERS: ATTEND Urology
DX: Z01.812 Encounter for preprocedural laboratory examination (principal); N20.0 Calculus of kidney
CPT/HCPCS: 36415; 80048; 85027

== ENCOUNTER → 2024-08-10 | Outpatient (CLI) | payer MEDICARE ==
[2024-08-10 11:35] VITALS: BP 155/79; PULSE 88; RESP 19; TEMP 97.8
--- NOTE | 2024-08-10 15:33 | P.PAINPG ---
Objective - Vital Signs Vital signs: Vital Signs Temp 97.8 F 08/10/24 11:31 Pulse 88 08/10/24 11:31 Resp 19 08/10/24 11:31 BP 155/79 08/10/24 11:31 Pulse Ox 98 08/10/24 11:31 FiO2 Intake & Output 08/09/24 08/10/24 08/10/24 18:59 06:59 18:59 Weight 73.028 kg PQRS Measure Charge Sheet Mode of Arrival: Ambulatory Comment: HISTORY OF PRESENT ILLNESS: A 74 yr old female presents today with severe and chronic L LBP secondary to radiculopathy, spondylolisthesis and facet arthropathy without myelopathy for evaluation. Pt states her pain level is currently at 6 /10 in intensity, constant, predominantly axial, pressure in character, localized in the L lower lumbar spine w occasional sharp shooting pain to the L hip, L buttock and LLE. Pain is provoked w over activity. Palliated w PT x 6 wks in October 2020, physician guided home exercises/ stretches 5 times weekly since 07/22/24, medications, heat, home exercise regimen as tolerated, sitting and rest. Interventional procedures include LIAM L4-L5 x2 Medications include Ibu REVIEW OF ORGAN SYSTEMS: CONSTITUTIONAL: No fevers or chills. No recent weight loss. NEUROLOGICAL: + numbness and tingling along the distal extremities. No seizure disorders or headaches. MUSCULOSKELETAL: + pain PSYCHIATRIC: Denies current depression or suicidal thoughts. Physical Examinations : Constitutional : Cooperative , not in acute distress . Neurologic : Cranial nerve II to XII intact. No focal neurological deficits. Psychiatric : alert & oriented x 3. Matching mood & appropriate affect. Judgment & insight intact. Musculoskeletal : Cervical Spine Motor strength in the deltoid and biceps: Normal right side. Normal Left side Motor strength biceps and the wrist extensors: Normal right side . Normal left side Motor strength in the triceps muscle: Normal right side. Normal left side Deep tendon reflexes: Normal at the biceps. Normal at Brachioradialis. Normal at triceps Vertebral body tenderness to deep palpation over Cervical facet loading test: positive bilaterally Spurling test: positive bilaterally Neck distraction test: positive bilaterally Terence sign: positive bilaterally Lumbar spine Motor strength lower extremities ,thigh and legs 5/5 Right side , 5/5 Left side Deep tendon reflexes : Normal Knee Jerk. Normal Ankle Jerk Vertebral body tenderness over L4 Lumbar facet Loading Test: positive Right / positive Left Range of motion of the lumbar spine Flexion 30 degrees, extension 10 degrees Straight Leg Raise test: Left/ Right positive at <35 degrees Raul test: positive right / positive left. Severe tenderness over the Sacroiliac joint on the Right / Left sides Gaenslen test: positive bilaterally Seated flexion test: positive bilaterally. Sacral spine : Severe tenderness over the Sacroiliac joint: right side / left side Range of motion: Flexion of the lumbar spine <60 degrees Range of motion: Extension of the lumbar spine <20 degrees Gaenslen's Test positive Low's Test positive Raul test: positive right side / left side Thigh Thrust Test Sacral Thrust Test Imaging: MRI without contrast of the lumbar spine from 07/31/24 reviewed Assessment/ Plan : Lumbar spondylolisthesis, lumbar radiculopathy Recommendation of L paramedian LIAM L3-L4 #1. Risks, benefits of procedure discussed and patient verbalized understanding. Protocol for discontinuation/continuation of medication surrounding procedure discussed. All questions answered. I have spent greater than 30 minutes on patient care today. Dr Deleon was available by phone for the evaluation of this patient. The time was used to re view the medical records including relevant urine studies and Prescription history (MAPs), review of the available imaging, evaluation and examination of the patient, coordination of care with the medical staff and if applicable referring physicians, as well as creation of the medical record - Pain Location Lower Back Non-Pharmacological Interventions: Heat, Relaxation Technique Pharmacological Interventions: Medication PQRS Narrative: Smoking Status Never smoker Blood Pressure 155/79 Pain Intensity [Lower Back] 4 Scale Used Numeric (1 - 10) Hx Alcohol Use (MH) No Home Medications: Ambulatory Orders Aspirin 81 mg PO HS 01/29/18 Calcium Carbonate [Calcium] 600 mg PO DAILY 01/29/18 Cholecalciferol (Vitamin D3) [Vitamin D3] 1,000 cap PO DAILY 01/29/18 Krill/[place]-3/Dha/Epa/Lipids [Krill Oil 350 mg Softgel] 350 mg PO DAILY 01/29/18 Losartan [Cozaar] 50 mg PO HS 01/29/18 Rosuvastatin [Crestor] 40 mg PO HS 04/28/18 Vit C/E/Zn/Coppr/Lutein/Zeaxan [Preservision Areds 2 Softgel] 1 each PO DAILY 11/06/19 Ibuprofen [Motrin] 800 mg PO Q8H PRN 07/10/22 Turmeric Root Extract [Turmeric] 450 mg PO DAILY 07/10/22 Ibuprofen [Motrin Ib] 200 mg PO Q8H PRN 07/22/23 Controlled Substance Measures - Controlled Substance Measures Is patient prescribed a controlled substance at discharge?: No
== END ==
LOC: PNWHC3 11:17
PROVIDERS: ATTEND Specialist
DX: M43.16 Spondylolisthesis, lumbar region (principal); M54.16 Radiculopathy, lumbar region
CPT/HCPCS: 99212

== ENCOUNTER 2024-08-27 06:53 | Day surgery (SDC) | payer MEDICARE ==
[2024-08-25 14:20] VITALS: BMI 28.5
--- NOTE | 2024-08-26 22:07 | P.GSHP ---
History of Present Illness H&P Date: 08/26/24 Chief Complaint: Left flank pain The patient is a 74-year-old white female who underwent a left percutaneous nephrolithotomy in 2019. She now presents with a 1.8 cm left mid to upper pole branched renal calculus. She has a history of hypercalciuria. She was offered the options of observation, ESWL, repeat percutaneous nephrolithotomy, and ureteroscopy with laser lithotripsy. After reviewing the pros and cons of each approach, she has elected to undergo ureteroscopic removal of the calculus. She denies hematuria and left flank pain. - Cardiovascular Cardiovascular: Reports high blood pressure - Genitourinary (Female) Genitourinary: Reports as per HPI Past Medical History Past Medical History: Coronary Artery Disease (CAD), Hyperlipidemia, Hype rtension Additional Past Medical History / Comment(s): left kidney stones, Early macular degeneration both eyes. Kidney stones. OA hips, knees. History of Any Multi-Drug Resistant Organisms: None Reported Past Surgical History: Back Surgery, Bladder Surgery, Breast Surgery Additional Past Surgical History / Comment(s): breast bx, 2002 bladder suspension, 2007 cyst removed c nerve L 4-5 area, wisdom teeth removal Past Anesthesia/Blood Transfusion Reactions: Postoperative Nausea & Vomiting (PONV) Additional Past Anesthesia/Blood Transfusion Reaction / Comment(s): no hx blood transfusion Smoking Status: Never smoker - Past Family History Mother Family Medical History: Hyperlipidemia, Hypertension Additional Family Medical History / Comment(s): cysts removed from breasts around age 40 Father Family Medical History: Congestive Heart Failure (CHF), Hypertension Medications and Allergies Home Medications Medication Instructions Recorded Confirmed Type Aspirin 81 mg PO HS 01/29/18 08/25/24 History Calcium Carbonate [Calcium] 600 mg PO DAILY 01/29/18 08/25/24 History Cholecalciferol (Vitamin D3) 25 mcg PO DAILY 01/29/18 08/25/24 History [Vitamin D3] Krill/[place]-3/Dha/Epa/Lipids 350 mg PO DAILY 01/29/18 08/25/24 History [Krill Oil 350 mg Softgel] Losartan [Cozaar] 50 mg PO HS 01/29/18 08/25/24 History Rosuvastatin [Crestor] 40 mg PO HS 04/28/18 08/25/24 History Vit C/E/Zn/Coppr/Lutein/Zeaxan 1 each PO DAILY 11/06/19 08/25/24 History [Preservision Areds 2 Softgel] Ibuprofen [Motrin] 800 mg PO Q8H PRN 07/10/22 08/25/24 History Turmeric Root Extract [Turmeric] 450 mg PO DAILY 07/10/22 08/25/24 History diazePAM [Valium] 5 - 10 mg PO ONCE PRN 08/25/24 08/25/24 History Allergies Allergy/AdvReac Type Severity Reaction Status Date / Time papaya Allergy hives Verified 08/25/24 14:09 Surgical - Exam - General well developed, well nourished, no distress - Respiratory normal respiratory effort - Psychiatric oriented to time, oriented to person, oriented to place, speech is normal, memory intact Results - Imaging Abdominal x-ray: report reviewed, image reviewed Assessment and Plan (1) Calculus of kidney Status: Acute Code(s): N20.0 - CALCULUS OF KIDNEY SNOMED Code(s): 79519286 Plan: Cystoscopy, left ureteroscopy with holmium laser lithotripsy and stone basketing, left ureteral stent insertion. The procedure has been reviewed in detail with the patient. She has been made aware of potential risks, which include anesthesia, bleeding, infection, ureteral injury, and inability to completely fragment the calculus. She is aware of the possible need for a secondary procedure.
[2024-08-27] MEDS: IV FLUID CONTINUATION 1,000 ML IV ONE (07:34)
--- NOTE | 2024-08-27 07:37 | XR ---
EXAMINATION TYPE: XR KUB DATE OF EXAM: 08/27/2024 7:29 AM CLINICAL INDICATION: Female, 74 years old with history of Left Renal Calculi N20.0, pain TECHNIQUE: 1 supine view of the abdomen. COMPARISON: Abdominal x-ray June 23, 2024. FINDINGS: Stable 19 mm calculus left kidney at L2 level. Suspect 1-2 tiny right renal calculi at L3 l evel. Overall nonobstructive bowel gas pattern. Visualized osseous structures are intact. IMPRESSION: As above. [facility], , 08/27/2024 7:35 AM
[2024-08-27] MEDS ORDERED: LIDOCAINE 1% (10MG/ML) FOR IV START INTRADERMA PRN (07:41)
[2024-08-27] MEDS ORDERED: HYDROmorphone 0.5 MG/0.5 ML SYRINGE IVP PRN (07:41)
[2024-08-27] MEDS ORDERED: fentaNYL (PF) 50 MCG/ML 2 ML AMP IVP PRN (07:41)
[2024-08-27] MEDS ORDERED: MIDAZOLAM 2 MG/2 ML VIAL IV PRN (07:41)
[2024-08-27] MEDS: DEXAMETHASONE SOD PHOSPHATE 4 MG/ML 1 ML VIAL IV ONE (07:56)
[2024-08-27] MEDS: ONDANSETRON 4 MG/2 ML VIAL IVP ONE (07:56)
[2024-08-27] MEDS ORDERED: SUCCINYLCHOLINE CHLORIDE 200 MG/10 ML VIAL IV ONE (08:21)
[2024-08-27] MEDS ORDERED: MIDAZOLAM 2 MG/2 ML VIAL ONE (08:21)
[2024-08-27] MEDS ORDERED: ePHEDrine 50 MG/ML 1 ML VIAL ONE (08:21)
[2024-08-27] MEDS ORDERED: PROPOFOL 10 MG/ML 20 ML VIAL IV ONE (08:21)
[2024-08-27] MEDS ORDERED: PHENYLEPHRINE-0.9% NACL SYG 1,000 MCG/10 ML SYRINGE ONE (08:21)
[2024-08-27] MEDS ORDERED: KETOROLAC 15 MG/ML 1 ML VIAL ONE (08:21)
[2024-08-27] MEDS ORDERED: fentaNYL (PF) 50 MCG/ML 2 ML AMP ONE (08:21)
[2024-08-27] MEDS ORDERED: LIDOCAINE 1% INJ 10MG/ML (20 ML MDV) ONE (08:21)
--- NOTE | 2024-08-27 09:46 | P.OP ---
Date of Procedure: 08/27/24 Preoperative Diagnosis: Left renal calculus Postoperative Diagnosis: Same Procedure(s) Performed: Cystoscopy, left ureteroscopy with Holmium laser lithotripsy, left ureteral stent insertion Anesthesia: KENROYA Surgeon: Duke Tran Estimated Blood Loss (ml): 5 IV fluids (ml): 850 Pathology: none sent Condition: stable Disposition: PACU Indications for Procedure: The patient is a 74-year-old white female who underwent a left percutaneous nephrolithotomy in 2019. She now presents with a 1.8 cm left mid to upper pole branched renal calculus. She has a history of hypercalciuria. She was offered the options of observation, ESWL, repeat percutaneous nephrolithotomy, and ureteroscopy with laser lithotripsy. After reviewing the pros and cons of each approach, she has elected to undergo ureteroscopic removal of the calculus. She denies hematuria and left flank pain. Operative Findings: 18 mm left mid to upper pole calculus, dusted completely. Description of Procedure: The patient was taken to the operating room and placed in the dorsolithotomy position, with legs supported in Supa stirrups. The external genitalia was prepped and draped sterilely. The 30 lens was used to introduce the 21-[place] Orozco cystoscopic sheath through the urethra and into the bladder under direct vision. The bladder was examined in its entirety. Both ureteral orifices were normal anatomic location and configuration, and clear urine effluxed from both. No tumors or foreign bodies were seen. A 0.038 inch Glidewire was passed through the cystoscope. The left ureteral orifice was cannulated, and the [place] wire was advanced up to the renal pelvis. The cystoscope was removed, and an 11/13-[place] ureteral access catheter was passed over the wire, up to the proximal ureter. The Oroz[employer] flexible ureteroscope was then passed through the ureteral access catheter sheath, up to the renal pelvis where the calculus was readily visualized within the infundibulum draining the mid to upper pole calyces. The 272 micron Holmium laser probe was passed through the ureteroscope, and lithotripsy was performed utilizing a dusting mode. Care was taken to laser the periphery of the stone and minimize fragmentation. When the occasional fragment did break away, it refluxed into an upper pole calyx where the fragment was treated using a combination of dusting and popcorning. Upon completion of the procedure, there were no residual calculus fragments exceeding 1 mm, and none seen on fluoroscopy. The ureteroscope was withdrawn. Pullout ureteroscopy showed no evidence of ureteral trauma. The Glidewire was passed through the ureteral access catheter sheath, which was removed. The Glidewire was then backloaded into the cystoscope, which was advanced into the bladder. A 24 cm, 4.8 [place] double-J ureteral stent was placed over the wire. Proper stent positioning was verified fluoroscopically and endoscopically. The bladder was emptied and the cystoscope removed. The patient tolerated the procedure well and was taken to the recovery room in stable condition. [facility] [place] [facility] Report: Procedure Acuity: Elective Stone Size and Location: 18 mm, left mid to upper pole Ureteral Dilation: No Ureteral Access Sheath Used: Yes Stone Sent for Analysis: No All Stones/Fragments Were Removed with a Basket: No Complications: No Preoperative Antibiotics Given: Yes Stent Placed: Yes If Stent Placed, Was String Left Attached: No If Stent Placed, When is it to be Removed: 1 week Discharge Medications:
--- NOTE | 2024-08-27 09:51 | FL ---
EXAMINATION TYPE: FL guidance operating room DATE OF EXAM: 08/27/2024 CLINICAL INDICATION: Female, 74 years old with history of Cysto for left kidney stone, TECHNIQUE: Fluoroscopy. COMPARISON: Same day abdominal x-ray. FINDINGS: Fluoroscopic guidance was provided during cystoscopy procedure performed by Dr. Tran. A total of 20 seconds of fluoroscopic time was utilized during the procedure and 4 spot images was acq uired. Images acquired show eventual placement of ureter stent. TOTAL DAP= n/p IMPRESSION: As Above. [facility], , 08/27/2024 9:49 AM
[2024-08-27 10:14] VITALS: TEMP 97
[2024-08-27] MEDS: LACTATED RINGERS 1,000 ML IV ONE (10:15)
[2024-08-27] MEDS: LACTATED RINGERS 1,000 ML IV SCH (10:15)
[2024-08-27 10:20] VITALS: RESP 16
[2024-08-27 11:04] VITALS: BP 128/78; PULSE 84
== END 2024-08-27 11:23 | disposition home or self-care (01) ==
LOC: OR 06:53
PROVIDERS: ATTEND Urology
DX: N20.0 Calculus of kidney (principal); I25.10 Atherosclerotic heart disease of native coronary artery without angina pectoris; I10 Essential (primary) hypertension; E78.5 Hyperlipidemia, unspecified; Z87.442 Personal history of urinary calculi; Z83.49 Family history of other endocrine, nutritional and metabolic diseases; Z82.49 Family history of ischemic heart disease and other diseases of the circulatory system; Z91.018 Allergy to other foods; Z79.82 Long term (current) use of aspirin; Z79.1 Long term (current) use of non-steroidal anti-inflammatories (NSAID); Z79.899 Other long term (current) drug therapy
CPT/HCPCS: 74018; 52356; C2625; C1769; J2250; J0330; J1100; J0690; J2405; J2003; J3010; J1885; J2704; J2371

== ENCOUNTER → 2024-09-11 | Day surgery (SDC) | payer MEDICARE ==
[~2024-09-11] MED LIST changes: +IOPAMIDOL M300 15ML VIAL ONE; +methylPREDNISolone ACETATE 80 MG/ML 1 ML VIAL ONE
[2024-09-11 12:06] VITALS: TEMP 97.9
[2024-09-11 13:31] VITALS: RESP 14
--- NOTE | 2024-09-11 13:34 | P.PCN ---
Description of Procedure: PREOPERATIVE DIAGNOSIS: 1- Lumbar Degenerative Disc Diseases 2-Lumbar spondylosis with Facet arthropathy without myelopathy. 3-lumbar spinal stenosis POSTOPERATIVE DIAGNOSIS: 1-lumbar degenerative disc disease. 2-lumbar spondylosis with facet arthropathy without myelopathy. 3-lumbar spinal stenosis. PROCEDURE Injection of radio contrast material into L3-4 interspace, interpretation of epidurogram, injection of steroid at L3-4 epidural space under fluoroscopic guidance. ANESTHESIA: Lidocaine 1% subcutaneously. In OR continuous pulse ox, EKG, blood pressure and verbal communication was maintained with the patient. EBL: Minimal PROCEDURE INDICATION: Before the procedure were discussed with the patient detailed procedure, alternatives, complications including infection, bleeding, nerve damage, paralysis all of which could be permanent. Patient understands and all questions were answered. PROCEDURE DESCRIPTION : After getting consent, patient in OR in prone position. Back was prepped with chlorhexidine and draped in sterile fashion. After injecting 10 mL of 1% lidocaine subcutaneously, a 20-gauge Tuohy needle was introduced at left paramedian L3-4 interspace with loss of resistance technique using a syringe filled with air. Negative CSF, negative blood, negative paresthesia. Needle position was confirmed with AP and lateral view of the fluoroscope. After repeat negative aspiration 2 mL of Omnipaque 200 water soluble contrast was injected. Contrast was noted in the epidural space. No contrast was noted into intrathecal or intravascular space. After repeat negative aspiration 6 mL solution was injected intermittently which consists of 5 mL of preservative-free normal saline mixed with 1 mL of 80 mg Depo-Medrol. Needle was withdrawn intact. Skin was cleansed and Band-Aids was applied. DISPOSITION / PLANS: The patient tolerated the procedure well. No complication. The patient was placed in a supine position and transferred to the recovery area in a stable condition for observation. There was no evidence of lower extremity motor or sensory deficit after the procedure. Patient was discharged from the recovery room after meeting discharge criteria. Home discharge instructions were given to the patient by the staff. The patient was reexamined prior to discharge. The patient will schedule a follow up in the clinic in 2-4 weeks.
--- NOTE | 2024-09-11 13:38 | FL ---
EXAMINATION TYPE: FL guided pain mgmt statistic Intraoperative/procedural fluoroscopic services were provided. CLINICAL INDICATION:Female, 74 years old with history of Lumbar Epid Inj; , PHH FINDINGS: Fluoroscopic image demonstrating lumbar epidural ejection. No radiographic evidence for complication. Total fluoroscopy time is 18.6 seconds. DAP: [id number] [id number] Please see the operative/procedural note for further details. [facility], , 09/11/2024 1:36 PM
[2024-09-11 13:44] VITALS: BP 122/75; PULSE 64
== END ==
LOC: ORPAIN 10:44
PROVIDERS: ATTEND Pain Medicine Interventional Pain Medicine
DX: M47.816 Spondylosis without myelopathy or radiculopathy, lumbar region (principal); M48.061 Spinal stenosis, lumbar region without neurogenic claudication; M51.369 Other intervertebral disc degeneration, lumbar region without mention of lumbar back pain or lower extremity pain; Z79.82 Long term (current) use of aspirin; Z79.1 Long term (current) use of non-steroidal anti-inflammatories (NSAID); Z91.018 Allergy to other foods
CPT/HCPCS: 62323; Q9967; J1010

== ENCOUNTER → 2024-09-28 | Outpatient (CLI) | payer MEDICARE ==
[2024-09-28 12:18] VITALS: BP 151/84; PULSE 84; RESP 16
--- NOTE | 2024-09-28 15:24 | P.PAINPG ---
PQRS Measure Charge Sheet Comment: HISTORY OF PRESENT ILLNESS: A 74 yr old female presents today with severe and chronic L LBP secondary to radiculopathy, spondylolisthesis and facet arthropathy without myelopathy for evaluation s/p L paramedian LIAM L3-L4 #1. Pt states she experienced 50% pain relief x 2 wks s/p procedure. Pt states her pain level is currently at 6-7 /10 in intensity, constant, predominantly axial, pressure in character, localized in the L lower lumbar spine w occasional sharp shooting pain to the LLE. Pain is provoked w over activity. Palliated w PT x 6 wks in October 2020, physician guided home exercises/ stretches 5 times weekly since 07/22/24, medications, heat, home exercise regimen as tolerated, sitting and rest. Interventional procedures include LIAM L4-L5 x2, L paramedian LIAM L3-L4 x1 Medications include Ibu REVIEW OF ORGAN SYSTEMS: CONSTITUTIONAL: No fevers or chills. No recent weight los s. NEUROLOGICAL: + numbness and tingling along the distal extremities. No seizure disorders or headaches. MUSCULOSKELETAL: + pain PSYCHIATRIC: Denies current depression or suicidal thoughts. Physical Examinations : Constitutional : Cooperative , not in acute distress . Neurologic : Cranial nerve II to XII intact. No focal neurological deficits. Psychiatric : alert & oriented x 3. Matching mood & appropriate affect. Judgment & insight intact. Musculoskeletal : Cervical Spine Motor strength in the deltoid and biceps: Normal right side. Normal Left side Motor strength biceps and the wrist ex tensors: Normal right side . Normal left side Motor strength in the triceps muscle: Normal right side. Normal left side Deep tendon reflexes: Normal at the biceps. Normal at Brachioradialis. Normal at triceps Vertebral body tenderness to deep palpation over Cervical facet loading test: positive bilaterally Spurling test: positive bilaterally Neck distraction test: positive bilaterally Terence sign: positive bilaterally Lumbar spine Motor strength lower extremities ,thigh and legs 5/5 Right side , 5/5 Left side Deep tendon reflexes : Normal Knee Jerk. Normal Ankle Jerk Vertebral body tenderness over L4 Lumbar facet Loading Test: positive Right / positive Left Range of motion of the lumbar spine Flexion 30 degrees, extension 10 degrees Straight Leg Raise test: Left/ Right positive at <35 degrees Raul test: positive right / positive left. Severe tenderness over the Sacroiliac joint on the Right / Left sides Gaenslen test: positive bilaterally Seated flexion test: positive bilaterally. Sacral spine : Severe tenderness over the Sacroiliac joint: right side / left side Range of motion: Flexion of the lumbar spine <60 degrees Range of motion: Extension of the lumbar spine <20 degrees Gaenslen's Test positive Low's Test positive Raul test: positive right side / left side Thigh Thrust Test Sacral Thrust Test Imaging: MRI without contrast of the lumbar spine from 07/31/24 reviewed Assessment/ Plan : Lumbar spondylolisthesis, lumbar radiculopathy Will manage residual pain and may RTC on an as-needed basis. All questions answered. I have spent greater than 30 minutes on patient care today. Dr Deleon was available by phone for the evaluation of this patient. The time was used to review the medical records including relevant urine studies and Prescription his tory (MAPs), review of the available imaging, evaluation and examination of the patient, coordination of care with the medical staff and if applicable referring physicians, as well as creation of the medical record PQRS Narrative: Smoking Status Never smoker Hx Alcohol Use (MH) No Home Medications: Ambulatory Orders Aspirin 81 mg PO HS 01/29/18 Calcium Carbonate [Calcium] 600 mg PO DAILY 01/29/18 Cholecalciferol (Vitamin D3) [Vitamin D3] 25 mcg PO DAILY 01/29/18 Krill/Kenly-3/Dha/Epa/Lipids [Krill Oil 350 mg Softgel] 500 mg PO DAILY 01/29/18 Losartan [Cozaar] 50 mg PO HS 01/29/18 Rosuvastatin [Crestor] 40 mg PO HS 04/28/18 Vit C/E/Zn/Coppr/Lutein/Zeaxan [Preservision Areds 2 Softgel] 1 each PO DAILY 11/06/19 Turmeric Root Extract [Turmeric] 1,400 mg PO DAILY 07/10/22 Controlled Substance Measures - Controlled Substance Measures Is patient prescribed a controlled substance at discharge?: No
== END ==
LOC: PNWHC3 11:19
PROVIDERS: ATTEND Specialist
DX: M47.816 Spondylosis without myelopathy or radiculopathy, lumbar region (principal); Z91.018 Allergy to other foods
CPT/HCPCS: 99211

== ENCOUNTER → 2024-10-12 | Outpatient (CLI) | payer MEDICARE ==
--- NOTE | 2024-10-12 13:43 | US ---
EXAMINATION TYPE: US kidneys/renal and bladder DATE OF EXAM: 10/12/2024 COMPARISON: CT 2019 CLINICAL INDICATION: Female, 74 years old with history of N20.0 CALCULUS OF KIDNEY; Recent removal of left kidney stone TECHNIQUE: Grayscale imaging of the bilateral kidneys and urinary bladder: FINDINGS: EXAM MEASUREMENTS: Right Kidney: 10.1 x 4.8 x 4.5 cm Left Kidney: 10.0 x 5.8 x 5.2 cm Right Kidney: 0.6cm echogenic focus inferior pole, dilated renal pelvis Left Kidney: wnl Bladder: wnl Bilateral Jets seen: yes IMPRESSION: Right-sided renal calculus with the mildly dilated right renal pelvis. [facility], , 10/12/2024 1:40 PM
== END | disposition home or self-care (01) ==
LOC: RADUSWWP 12:58
PROVIDERS: ATTEND Urology
DX: N20.0 Calculus of kidney (principal); N28.89 Other specified disorders of kidney and ureter
CPT/HCPCS: 76770

== ENCOUNTER → 2024-10-15 | Outpatient (CLI) | payer MEDICARE ==
--- NOTE | 2024-10-15 14:27 | CT ---
EXAMINATION TYPE: CT abdomen pelvis wo con DATE OF EXAM: 10/15/2024 COMPARISON: 11/11/2019 CLINICAL INDICATION: Female, 74 years old with history of N13.30 RIGHT HYDRONEPHROSIS; PHH, KIDNEY ST ONES AND RIGHT SIDE HYDRONEPHROSIS TECHNIQUE: CT scan of the abdomen and pelvis is performed without oral or IV contrast. CT DLP: [address] CTDI: mGy Automated exposure control for dose reduction was used. FINDINGS: Within the limitations of a non-contrast study, the following observations are made. The lungs are clear. Gallbladder is normal and there is no gallstone, wall thickening, pericholecystic fluid or distention . There is no biliary ductal dilatation. There is no organomegaly of the liver, pancreas, spleen or adrenal glands. 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 There is a cluster of 5 left renal calcifications largest of which is 5 mm. There has been interval removal of a left percutaneous neph rostomy tube. The marked perinephric stranding seen in the prior study and perinephric air collection s have resolved in the interval. There is no hydronephrosis bilaterally The caliber of the abdominal aorta is normal and there is no retroperitoneal adenopathy or hemorrhage . The bowel loops are normal in caliber is no evidence of obstruction. No inflammatory changes are iden tified in the mesentery and there is no free intraperitoneal air or fluid. There is no pelvic mass, free fluid, abscess or adenopathy. There is mild diverticulosis of the colon without CT evidence of diverticulitis. The osseous structures and soft tissues are unremarkable. IMPRESSION: Bilateral nonobstructing nephrocalcinosis as described above. [facility], , 10/15/2024 2:24 PM
== END | disposition home or self-care (01) ==
LOC: RADCTMAIN 13:48
PROVIDERS: ATTEND Urology
DX: N13.30 Unspecified hydronephrosis (principal); N29 Other disorders of kidney and ureter in diseases classified elsewhere; E83.59 Other disorders of calcium metabolism
CPT/HCPCS: 74176

== ENCOUNTER → 2024-10-28 | Outpatient (CLI) | payer MEDICARE ==
--- NOTE | 2024-10-28 12:39 | MM ---
Reason for Exam: Screening (asymptomatic). Last mammogram was performed 1 year(s) and 2 month(s) ago. Patient History: Menarche at age 13. First Full-Term at age 29. Postmenopausal. Patient has history of breast feeding. 05/15/2018, Benign Core Biopsy on the right side. 08/10/1998, Benign Excisional Biopsy on the left side. 02/14/2018, MG discontinued stereo core RT on the right side. Niece had breast cancer under age 50. Sister had breast cancer, left, age 70. Risk Values: Savana 5 year model risk: 5.6%. NCI Lifetime model risk: 14.1%. Prior Study Comparison: 08/10/2021 Bilateral Screening Mammogram, [facility]. 08/16/2022 Bilateral MG 3D screening mammo w/cad, [facility]. 08/21/2023 Bilateral MG 3D screening mammo w/cad, [facility]. Tissue Density: The breasts are heterogeneously dense, which may obscure small masses. Findings: Analyzed By CAD. There are benign-appearing round and linear calcification bilaterally redemonstrated. Benign-appearing Vascular calcification bilaterally is redemonstrated. Benign bilateral axillary lymph nodes are again seen. There is no suspicious group of microcalcifications or new suspicious mass in either breast. Overall Assessment: Benign, BI-RAD 2 Management: Screening Mammogram of both breasts in 1 year. Some advise annual bilateral breast ultrasound surveillance in patients with background dense tissue. Patient should continue monthly self-breast exams. A clinical breast exam by your physician is recommended on an annual basis. This exam should not preclude additional follow-up of suspicious palpable abnormalities. Note on Savana scores and lifetime risk: 1. A Savana score greater than 3% is considered moderate risk. If this is the case, consider specialist referral to assess eligibility for a risk reducing agent. 2. If overall lifetime risk for the development of breast cancer is 20% or higher, the patient may qualify for future screening with alternating mammogram and breast MRI. [facility], , 10/28/2024 12:36 PM. Electronically signed and approved by: Luis Richardson M.D.
== END | disposition home or self-care (01) ==
LOC: RADMAMWWP 10:48
PROVIDERS: ATTEND Emergency Medicine
DX: Z12.31 Encounter for screening mammogram for malignant neoplasm of breast (principal); R92.333 Mammographic heterogeneous density, bilateral breasts; R92.1 Mammographic calcification found on diagnostic imaging of breast; Z78.0 Asymptomatic menopausal state; Z80.3 Family history of malignant neoplasm of breast
CPT/HCPCS: 77063; 77067